=== PATIENT | female | born 1990 | race Caucasian/White ===

== ENCOUNTER 2016-08-10 11:16 | Outpatient (CLI) | payer MEDICAID ==
[~2016-08-10] VITALS: Ht 170.2 cm; Wt 92.1 kg
[~2016-08-10 11:16] MED LIST: BENZ-13 PO; BIRTH CONTROL PILL; CLOT45CR46 TOP; DICL50TA4 PO; DOXY100C2 PO; IBUP-1780 PO; Ibuprofen PO; LANS15CA PO; LEVO500T2 PO; METH4TAB PO; NAPR-243 PO; NITR-65 PO; ONDA-43 PO; ONDA4TAB11 PO; ONDA8TAB6 SL; PRAZ2CAP2 PO; PREN-37 PO; PREN1TAB19 PO; PRISTIQ PO; SULF-222 PO; SULF1TAB35 PO; VALA10004 PO; [UNRECOGNIZED DRUG - CODE] TP; magic mouthwash PO
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
[2016-08-10 11:36] VITALS: BP 93/53
[2016-08-10 11:57] LABS: BILIRUBIN,URINE NEGATIVE (NEGATIVE); KETONES,URINE NEGATIVE (NEGATIVE); LEUKOCYTE ESTERASE ,URINE 1+ (NEGATIVE); NITRITE,URINE NEGATIVE (NEGATIVE); PH,URINE 6 (5-9); PROTEIN,URINE 2+ (NEGATIVE); UROBILINOGEN,URINE NORMAL (NORMAL)
[2016-08-10 12:07] VITALS: BP 108/59
[2016-08-10 12:08] LABS: WBC,URINE 0-2 /HPF
[2016-08-10] MEDS ORDERED: FLU TRIvalent (5 YOA+) 2016-17 (AFLURIA) 0.5 ML IM ONE ×2 (12:41→12:45)
[2016-08-10] MEDS ORDERED: TETANUS,DIPTH,PERTUSS P/F (BOOSTRIX) 0.5 ML VIAL IM ONE (12:45)
[2016-08-10] MEDS ORDERED: TETANUS & DIPHTHERIA TOX,ADULT 0.5 ML (TENIVAC) IM ONE (12:45)
[2016-08-10 13:05] VITALS: BP 108/59
--- NOTE | 2016-08-11 14:19 | Physician Query-Final Dx ---
JER FENTON 08/11/16 1419: Clinic Account Progress/Dx Physician Query: Please give diagnosis Date of Service Aug 10, 2016 at 11:16 TOAN BROWN MD 08/12/16 0739: Clinic Account Progress/Dx DIAGNOSIS: Diagnosis false labor JER FENTON Aug 11, 2016 14:19 TOAN BROWN MD Aug 12, 2016 07:39
== END 2016-08-10 13:05 | disposition home or self-care (01) ==
LOC: WSo 11:16 → LDRP 11:16 → WSo 13:05
PROVIDERS: ATTEND Obstetrics & Gynecology
DX: O47.03 False labor before 37 completed weeks of gestation, third trimester (principal); Z3A.34 34 weeks gestation of pregnancy; Z23 Encounter for immunization
CPT/HCPCS: 80306; 81000; 90471; 90472; 90715; 99213

== ENCOUNTER 2016-09-19 21:03 | Outpatient (CLI) | payer MEDICAID ==
[~2016-09-19] VITALS: Ht 170.2 cm; Wt 97.1 kg
[2016-09-19 21:10] VITALS: BP 133/75
[2016-09-19 21:33] LABS: BILIRUBIN,URINE NEGATIVE (NEGATIVE); KETONES,URINE NEGATIVE (NEGATIVE); LEUKOCYTE ESTERASE ,URINE 1+ (NEGATIVE); NITRITE,URINE NEGATIVE (NEGATIVE); PH,URINE 6 (5-9); PROTEIN,URINE NEGATIVE (NEGATIVE); UROBILINOGEN,URINE 1 MG/DL (NORMAL)
[2016-09-19 22:59] VITALS: BP 133/75
--- NOTE | 2016-09-20 06:20 | Diagnostic Imaging Report ---
INDICATION: Abdominal pain. COMPARISON: None PROCEDURE: Limited ultrasound biophysical profile score is performed. FINDINGS: There is a single live intrauterine gestation in cephalic position. heart rate is 135 beats per minute. Amniotic fluid index is 14.1 cm. Biophysical profile score is as follows: breathin/2 movements: 2/2 posture and tone: 2/2 Amniotic fluid volume: 2/2 Total score: 8/8 Estimated gestational age by today's ultrasound measurements is 38 weeks 2 days compared to an estimated gestational age based on prior dating of 39 weeks 5 days. Estimated weight from today's ultrasound is 3397 g (+/-196 g (, or 7 lbs. 8 oz. (+/-13 ounces). This is approximately 35th percentile. IMPRESSION: Single live intrauterine gestation with a biophysical profile score of 8/8. heart rate is 135 beats per minute. No acute abnormality is suspected. Agree with [facility] interpretation Dictated by: Dictated on workstation # [id number]
--- NOTE | 2016-09-22 10:02 | Physician Query-Final Dx ---
JER FENTON 09/22/16 1002: Clinic Account Progress/Dx Physician Query: Please give diagnosis Date of Service Sep 19, 2016 at 21:03 ELLE TATE DO 09/23/16 1213: Clinic Account Progress/Dx Physician Query: DIAGNOSIS: Diagnosis 39 week IUP Abdominal pains Non compliance with JER FENTON Sep 22, 2016 10:02 ELLE TATE DO Sep 23, 2016 12:13
== END 2016-09-19 23:05 | disposition home or self-care (01) ==
LOC: WSo 21:03 → LDRP 21:05 → WSo 23:05
PROVIDERS: ATTEND Obstetrics & Gynecology
DX: O99.89 Other specified diseases and conditions complicating pregnancy, childbirth and the puerperium (principal); R10.10 Upper abdominal pain, unspecified; Z91.19 Patient's noncompliance with other medical treatment and regimen; Z3A.39 39 weeks gestation of pregnancy
CPT/HCPCS: 76819; 80306; 81000; 87081; 99213

== ENCOUNTER 2016-09-24 20:00 | Inpatient (IN) | payer MEDICAID ==
[~2016-09-24] VITALS: Ht 165.1 cm; Wt 97.1 kg
[2016-09-24] VITALS (8 sets, daily range): BP systolic 104–131; BP diastolic 55–83
[2016-09-24] MEDS ORDERED: D5 LR IV SOLUTION 1,000 ML IV ONE (21:07)
[2016-09-24] MEDS ORDERED: LACTATED RINGERS 1,000 ML IV SCH (21:14)
[2016-09-24] MEDS ORDERED: MINERAL OIL CONCENTRATE 99.9% 15 ML UDC TOP PRN (21:15)
[2016-09-24] MEDS ORDERED: MISOPROSTOL 100 MCG (CYTOTEC) TAB PO ONE (21:15)
[2016-09-24 22:19] LABS: BASOPHILS % (AUTO) 0 % (0-10); EOSINOPHILS # (AUTO) 0.3 10^3/uL (0.0-0.3); EOSINOPHILS % (AUTO) 2 % (0-10); LYMPHOCYTES # (AUTO) 3.2 X 10^3 (1.0-4.0); LYMPHOCYTES % (AUTO) 20 % (12-44); MEAN CORPUSCULAR HEMOGLOBIN 32 PG (25-34); MEAN CORPUSCULAR HGB CONC 35 G/DL (32-36); MEAN CORPUSCULAR VOLUME 92 FL (80-99); MEAN PLATELET VOLUME 10.8 FL (7.4-10.4); MONOCYTES # (AUTO) 1.1 X 10^3 (0.0-1.0); MONOCYTES % (AUTO) 7 % (0-12); NEUTROPHILS # (AUTO) 11.4 X 10^3 (1.8-7.8); NEUTROPHILS % (AUTO) 71 % (42-75); PLATELET COUNT 250 10^3/uL (130-400); RED BLOOD COUNT 4.14 10^6/uL (4.35-5.85); RED CELL DISTRIBUTION WIDTH 13.6 % (10.0-14.5); WHITE BLOOD COUNT 15.9 10^3/uL (4.3-11.0)
[2016-09-24] MEDS: D5 LR IV SOLUTION 1,000 ML IV SCH (22:20)
[2016-09-24] MEDS ORDERED: SUFENTA 0.6MCG/ML BUPIVA 0.125 100 ML ONE (22:53)
[2016-09-24] MEDS ORDERED: BUPIVACAINE 0.25% 30 ML (SENSORCAINE) VIAL ONE (23:28)
[2016-09-24] MEDS: EPIDURAL (SUFENTA 0.6MCG/ML BUPIVA 0.125%) 100 ML BAG EPI SCH (23:46)
[2016-09-25] VITALS (81 sets, daily range): BP systolic 88–153; BP diastolic 48–81
[2016-09-25] MEDS ORDERED: LACTATED RINGERS 1,000 ML IV ONE (00:29)
[2016-09-25] MEDS ORDERED: NALOXONE 0.4 MG/ML 1 ML (NARCAN) VIAL IV PRN (00:30)
[2016-09-25] MEDS ORDERED: ONDANSETRON 4 MG/2 ML (SDV) Z0FRAN IV PRN (00:30)
[2016-09-25] MEDS ORDERED: BUPIVACAINE 0.25% 30 ML (SENSORCAINE) VIAL INJ ONE (00:30)
[2016-09-25] MEDS: MISOPROSTOL 100 MCG (CYTOTEC) TAB PO SCH ×2 (02:28→06:11)
[2016-09-25] MEDS: D5 LR IV SOLUTION 1,000 ML IV SCH ×2 (04:46→12:40)
--- NOTE | 2016-09-25 07:26 | History & Physical-OB ---
OB - Chief Complaint & HPI Date Date of Admission: Date of Admission: Sep 24, 2016 at 8:45 pm Chief Complaint/History OB-Reason for Admission/Chief: Induction of Labor Hx : 5 Hx Para: 3 Expected Date of Delivery: Sep 21, 2016 Gestational Age in Weeks: 40 Indication for induction: post dates, other (Noncompliance with PNC) Admission Nurse Assessment Rev: Yes History of Labs A pos Antibody neg RI RPR NR HBsAg NR HIV NR GC neg GBS neg Allergies and Home Medications Allergies Coded Allergies: Penicillins (Unverified Allergy, Unknown, 01/09/14) Home Medications Vit/Iron Fumarate/FA 1 Each Tablet, 1 EACH PO DAILY, (Reported) OB - History Hx of Present Care: Yes Obstetrical Complications: Other (noncompliance with PNC, limited PNC) Medical Complications: None Obstetrical History Hx Termination: No Hx Multiple Gestation: No Hx Stillbirth: No Hx Complication: No Hx Induced Hypertens: No Hx Maternal Gestational Diabet: No Delivery History Hx Dystocia: No Hx Large For Gestational Age I: No Hx Small for Gestational Age I: No Hx Section: No Hx Vaginal Delivery Post C-Sec: No Hx Blood Disorders: No Adverse Rxn to Tranfusion: No Patient Past Medical History History of substance abuse and noncompliance Social History/Family History HIV/AIDS: No Recent Infectious Disease Expo: No Sexually Transmitted Disease: Yes (CHLAMYDIA) Alcohol Use: Denies Use Recreational Drug Use: Yes (neg on UDS) Immunizations Hepatitis A: Yes Hepatitis B: Yes Tetanus Booster (TDap): More than 5yrs Date of Influenza Vaccine: Mar 26, 2015 OB - Admission Exam Physical Exam Vitals: Vital Signs 09/25/16 09/25/16 05:15 06:30 Temp 98.2 Pulse 81 Resp 18 B/P (MAP) 98/56 Pulse Ox 97 HEENT: NCAT Heart: Rhythm Normal Lungs: Clear Abdomen: Gravid Extremities: Normal Reflexes: Normal Cervical Dilatation: 1cm Effacement: 75% Station: -1 Membranes: Intact Heart Rate: 130's Accelerations: Accelerations Present Decelerations: No Decelerations Short Term Variability: Present Jewelry Engraver Variability: Average (6-25) Contractions on Admission: 6-10 Minutes Apart Intensity: Mild Bassett Scoring Tool (Modified) Dilation (cm): 1-2cm (1) Effacement (%): 51-79% (2) Descent/Station: -1,0 (2) Cervix Consistency: Soft (2) Cervix Position: Anterior (2) Add 1 point for: Each previous vaginal delivery (1) Bassett Score: 11 Labs Laboratory Tests Test 09/24/16 21:00 09/24/16 21:30 Range/Units Urine Opiates Screen NEGATIVE NEGATIVE Urine Oxycodone Screen NEGATIVE NEGATIVE Urine Methadone Screen NEGATIVE NEGATIVE Urine Propoxyphene Screen NEGATIVE NEGATIVE Urine Barbiturates Screen NEGATIVE NEGATIVE Ur Tricyclic Antidepressants Screen NEGATIVE NEGATIVE Urine Phencyclidine Screen NEGATIVE NEGATIVE Urine Amphetamines Screen NEGATIVE NEGATIVE Urine Methamphetamines Screen NEGATIVE NEGATIVE Urine Benzodiazepines Screen NEGATIVE NEGATIVE Urine Cocaine Screen NEGATIVE NEGATIVE Urine Cannabinoids Screen NEGATIVE NEGATIVE White Blood Count 15.9 H 4.3-11.0 10^3/uL Red Blood Count 4.14 L 4.35-5.85 10^6/uL Hemoglobin 13.2 11.5-16.0 G/DL Hematocrit 38 35-52 % Mean Corpuscular Volume 92 80-99 FL Mean Corpuscular Hemoglobin 32 25-34 PG Mean Corpuscular Hemoglobin Concent 35 32-36 G/DL Red Cell Distribution Width 13.6 10.0-14.5 % Platelet Count 250 130-400 10^3/uL Mean Platelet Volume 10.8 H 7.4-10.4 FL Neutrophils (%) (Auto) 71 42-75 % Lymphocytes (%) (Auto) 20 12-44 % Monocytes (%) (Auto) 7 0-12 % Eosinophils (%) (Auto) 2 0-10 % Basophils (%) (Auto) 0 0-10 % Neutrophils # (Auto) 11.4 H 1.8-7.8 X 10^3 Lymphocytes # (Auto) 3.2 1.0-4.0 X 10^3 Monocytes # (Auto) 1.1 H 0.0-1.0 X 10^3 Eosinophils # (Auto) 0.3 0.0-0.3 10^3/uL Basophils # (Auto) 0.0 0.0-0.1 10^3/uL OB - Assessment/Plan/Diagnosis Assessment Assessment: induction of labor Plan Induction Method: per Misoprostol Protocol Discharge Diagnosis Diagnosis: 26 yo @ 40.2 weeks Non compliance with PNC History of substance abuse GBS neg ELLE TATE DO Sep 25, 2016 7:26 am
[2016-09-25] MEDS: CATHETER FLUSH 10 ML SYR IV SCH ×2 (07:49→15:31)
[2016-09-25] MEDS ORDERED: OXYTOCIN/NORMAL SALINE 500 ML IV ONE (08:01)
[2016-09-25] MEDS: EPIDURAL (SUFENTA 0.6MCG/ML BUPIVA 0.125%) 100 ML BAG EPI SCH (08:08)
[2016-09-25] MEDS ORDERED: OXYTOCIN/NORMAL SALINE 500 ML IV SCH ×2 (10:00→18:08)
--- NOTE | 2016-09-25 14:38 | Anesthesia-Regional Post-Op ---
Regional Patient Condition Mental Status: Alert, Oriented x3 Circulation: Same as Pre-Op Headache: Absent Sensation: Full Recovery Motor Block: Absent Post Op Complications Complications None Follow Up Care/Instructions Patient Instructions None needed. Anesthesia/Patient Condition Patient is doing well, no complaints, stable vital signs, no apparent adverse anesthesia problems. No complications reported per nursing. DORCAS MOREIRA CRNA Sep 25, 2016 14:38
--- NOTE | 2016-09-25 18:08 | OB Labor & Delivery Record ---
L&D History Date of Service Date of Service: Sep 25, 2016 History Expected Date of Delivery: Sep 21, 2016 Gestational Age in Weeks: 40 Hx : 5 Hx Para: 3 Complications Events: No Care Operative Indications (Cesarea: N/A-Vaginal Delivery Intrapartal Events: None L&D Stage1 Stage One Onset of Labor - Date: Sep 25, 2016 Monitors and Tracing Monitor Mode: External Heart Rate: 125 Station: -2 Presentation: Vertex Vital Signs VS - Last 72 Hours, by Label 09/24/16 09/24/16 09/24/16 09/24/16 20:45 23:20 23:35 23:40 Temp 97.0 97.7 Pulse 107 82 96 91 Resp 18 18 18 18 B/P (MAP) 131/83 104/55 123/68 121/74 Pulse Ox 98 98 09/24/16 09/24/16 09/24/16 09/24/16 23:45 23:47 23:52 23:57 Pulse 87 106 98 95 Resp 18 18 18 18 B/P (MAP) 120/75 121/71 111/58 111/61 Pulse Ox 100 100 99 99 09/25/16 09/25/16 09/25/16 09/25/16 00:02 00:07 00:12 00:17 Pulse 83 81 96 78 Resp 18 18 18 18 B/P (MAP) 100/57 98/56 109/62 107/58 Pulse Ox 99 99 99 98 09/25/16 09/25/16 09/25/16 09/25/16 00:22 00:30 00:45 01:00 Pulse 84 76 78 79 Resp 18 18 18 18 B/P (MAP) 110/67 112/58 102/55 105/55 Pulse Ox 98 98 97 97 09/25/16 09/25/16 09/25/16 09/25/16 01:15 01:30 01:45 02:00 Temp 98.2 Pulse 85 90 80 80 Resp 18 18 18 18 B/P (MAP) 100/56 101/52 100/56 101/50 Pulse Ox 98 98 98 97 09/25/16 09/25/16 09/25/16 09/25/16 02:15 02:30 02:45 03:00 Pulse 78 81 79 81 Resp 18 18 18 18 B/P (MAP) 101/54 102/58 99/58 98/56 Pulse Ox 96 96 96 96 09/25/16 09/25/16 09/25/16 09/25/16 03:15 03:30 03:45 04:00 Pulse 80 82 80 96 Resp 18 18 18 18 B/P (MAP) 88/52 95/52 89/50 91/52 Pulse Ox 96 96 96 97 09/25/16 09/25/16 09/25/16 09/25/16 04:15 04:30 04:45 05:00 Pulse 80 80 79 78 Resp 18 18 18 18 B/P (MAP) 97/48 99/50 92/54 93/54 Pulse Ox 96 96 97 97 09/25/16 09/25/16 09/25/16 09/25/16 05:15 05:30 05:45 06:00 Temp 98.2 Pulse 79 81 86 101 Resp 18 18 18 18 B/P (MAP) 94/54 101/54 106/59 117/58 Pulse Ox 97 97 97 97 09/25/16 09/25/16 09/25/16 09/25/16 06:15 06:30 06:45 07:00 Pulse 83 81 93 97 Resp 18 18 18 18 B/P (MAP) 110/61 98/56 109/59 110/59 Pulse Ox 97 97 97 97 09/25/16 09/25/16 09/25/16 09/25/16 07:15 07:30 07:45 08:00 Pulse 97 80 91 85 Resp 18 18 18 18 B/P (MAP) 106/57 116/61 Pulse Ox 96 94 96 96 O2 Delivery Room Air Room Air 09/25/16 09/25/16 09/25/16 09/25/16 08:15 08:30 08:45 09:00 Temp 98.1 Pulse 87 76 74 81 Resp 18 18 18 18 B/P (MAP) 99/60 109/53 102/59 99/58 Pulse Ox 97 98 97 97 O2 Delivery Room Air Room Air Room Air Room Air 09/25/16 09/25/16 09/25/16 09/25/16 09:15 09:30 09:45 10:00 Pulse 75 82 72 80 Resp 18 18 18 18 B/P (MAP) 101/60 106/62 105/58 103/57 Pulse Ox 97 96 96 96 O2 Delivery Room Air Room Air Room Air Room Air 09/25/16 09/25/16 09/25/16 09/25/16 10:15 10:30 10:45 11:00 Temp 98.0 Pulse 78 76 71 77 Resp 18 18 18 18 B/P (MAP) 105/55 104/57 107/58 110/59 Pulse Ox 96 98 97 96 O2 Delivery Room Air Room Air Room Air Room Air 09/25/16 09/25/16 09/25/16 09/25/16 11:15 11:30 11:45 12:00 Temp 97.4 Pulse 74 67 86 86 Resp 18 18 18 18 B/P (MAP) 90/51 92/50 94/58 94/58 Pulse Ox 98 99 98 98 O2 Delivery Room Air Room Air Room Air Room Air 09/25/16 09/25/16 09/25/16 09/25/16 12:15 12:30 12:45 13:00 Temp 97.7 Pulse 82 73 74 74 Resp 18 18 18 18 B/P (MAP) 92/51 93/54 118/64 118/64 Pulse Ox 99 97 98 98 O2 Delivery Room Air Room Air Room Air Room Air 09/25/16 09/25/16 09/25/16 09/25/16 13:15 13:30 13:45 14:00 Pulse 73 69 74 85 Resp 18 18 18 18 B/P (MAP) 111/57 98/54 111/65 109/63 Pulse Ox 97 96 98 98 O2 Delivery Room Air Room Air Room Air Room Air 09/25/16 09/25/16 09/25/16 09/25/16 14:15 14:30 14:45 15:00 Temp 97.5 Pulse 80 78 69 77 Resp 18 18 18 18 B/P (MAP) 106/62 105/63 103/59 107/54 Pulse Ox 98 98 97 98 O2 Delivery Room Air Room Air Room Air Room Air 09/25/16 09/25/16 15:15 15:30 Temp 97.4 Pulse 80 80 Resp 18 18 B/P (MAP) 106/61 Pulse Ox 98 97 O2 Delivery Room Air Room Air Rupture of Membranes Amniotic Membrane Rupture Time: 0659 Amniotic Membrane Fluid Desc.: Clear Vaginal Bleeding Description: Normal Show Induction/Anesthesia Epidural Cath Placement - Time: 2338 L&D Stage2 Stage Two Stage II Date: Sep 25, 2016 Monitors and Tracing Monitor Mode: External Heart Rate: 125 Monitor Decelerations: Variable Last Greaser Variability: Average (6-10) Short Term Variability: Present Position: Right Occiput Anterior Presentation: Vertex Cord Descript/Complications Cord Vessel Description: 3 Vessels Complications true knot noted in cord Delivery Type Anterior Shoulder: Right Episiotomy/Perineal Laceration Laceraction(s)/Extensions: No Condition of Infant Condition of Infant Condition of Infant: Living Exam: No Observed Abnormalities APGARS and Weight pending. Resuscitation efforts started by SANJAY Robles and Dr. Harp, with spontaneous respirations occuring shortly after L&D Stage3 Stage Three Stage III Date: Sep 25, 2016 Pictocin Pitocin Administration mu/min: 8 Pitocin ml/hr: 8 Pitocin Administration Comment: 30 mu Wide open Placenta Delivery Placenta Delivery: Spontaneous Delivery Summary Summary blood loss >1000ml: No Vaginal blood loss >500ml: No 250 Attending at delivery: Elle Tate DO Condition of Delivery Examined: Cervix Examined, Uterus Explored Post Hemorrhage: No Condition of Mother stable Condition of Infant (s) stable ELLE TATE DO Sep 25, 2016 6:08 pm
[2016-09-25] MEDS ORDERED: WITCH HAZEL(TUCKS) 40 EA JAR TOP PRN (18:15)
[2016-09-25] MEDS ORDERED: BENZOCAINE/MENTHOL (DERMOPLAST) 56 ML CAN TP PRN (18:15)
[2016-09-25] MEDS ORDERED: APAP 300 MG/CODEINE 30 MG (TYLENOL #3) TAB PO PRN (18:15)
[2016-09-25] MEDS ORDERED: TETANUS,DIPTH,PERTUSS P/F (BOOSTRIX) 0.5 ML VIAL IM ONE (18:15)
[2016-09-25] MEDS ORDERED: DIBUCAINE (NUPERCAINAL) 1% OINT 30 GM TOP PRN (18:15)
[2016-09-25] MEDS ORDERED: MEASLES,MUMPS,RUBELLA 1 EA INJ SQ ONE (18:15)
[2016-09-25] MEDS: IBUPROFEN 600 MG (MOTRIN) TAB PO SCH ×2 (18:24→23:58)
[2016-09-25] MEDS: DOCUSATE SODIUM 100 MG (COLACE) CAP PO SCH (20:26)
[2016-09-26] VITALS: BP 98/55
[2016-09-26 04:00] VITALS: BP 96/55
[2016-09-26] MEDS: D5 LR IV SOLUTION 1,000 ML IV SCH ×2 (05:14→05:38)
[2016-09-26] MEDS: CATHETER FLUSH 10 ML SYR IV SCH ×4 (05:34→05:39)
[2016-09-26 06:46] LABS: BASOPHILS % (AUTO) 0 % (0-10); EOSINOPHILS # (AUTO) 0.2 10^3/uL (0.0-0.3); EOSINOPHILS % (AUTO) 2 % (0-10); LYMPHOCYTES % (AUTO) 25 % (12-44); MEAN CORPUSCULAR HEMOGLOBIN 31 PG (25-34); MEAN CORPUSCULAR HGB CONC 34 G/DL (32-36); MEAN CORPUSCULAR VOLUME 92 FL (80-99); MEAN PLATELET VOLUME 10.5 FL (7.4-10.4); MONOCYTES # (AUTO) 0.8 X 10^3 (0.0-1.0); MONOCYTES % (AUTO) 7 % (0-12); NEUTROPHILS # (AUTO) 8.3 X 10^3 (1.8-7.8); NEUTROPHILS % (AUTO) 67 % (42-75); PLATELET COUNT 214 10^3/uL (130-400); RED BLOOD COUNT 4.12 10^6/uL (4.35-5.85); RED CELL DISTRIBUTION WIDTH 13.5 % (10.0-14.5); WHITE BLOOD COUNT 12.4 10^3/uL (4.3-11.0)
[2016-09-26] MEDS: IBUPROFEN 600 MG (MOTRIN) TAB PO SCH ×3 (07:11→18:54)
[2016-09-26 08:00] VITALS: BP 126/81
[2016-09-26] MEDS ORDERED: DOCUSATE CALCIUM 240 MG (SURFAK) CAP PO SCH (09:00)
--- NOTE | 2016-09-26 10:42 | Postpartum Progress Note ---
Note Note Day # 1 s/p Subjective: Patient is without complaints. Ambulating, voiding. Tolerating a regular diet without nausea or vomiting. Normal lochia. Pain is well controlled with oral pain medications. Objective: Laboratory Tests Test 09/26/16 06:19 Range/Units White Blood Count 12.4 H 4.3-11.0 10^3/uL Red Blood Count 4.12 L 4.35-5.85 10^6/uL Hemoglobin 12.9 11.5-16.0 G/DL Hematocrit 38 35-52 % Mean Corpuscular Volume 92 80-99 FL Mean Corpuscular Hemoglobin 31 25-34 PG Mean Corpuscular Hemoglobin Concent 34 32-36 G/DL Red Cell Distribution Width 13.5 10.0-14.5 % Platelet Count 214 130-400 10^3/uL Mean Platelet Volume 10.5 H 7.4-10.4 FL Neutrophils (%) (Auto) 67 42-75 % Lymphocytes (%) (Auto) 25 12-44 % Monocytes (%) (Auto) 7 0-12 % Eosinophils (%) (Auto) 2 0-10 % Basophils (%) (Auto) 0 0-10 % Neutrophils # (Auto) 8.3 H 1.8-7.8 X 10^3 Lymphocytes # (Auto) 3.0 1.0-4.0 X 10^3 Monocytes # (Auto) 0.8 0.0-1.0 X 10^3 Eosinophils # (Auto) 0.2 0.0-0.3 10^3/uL Basophils # (Auto) 0.0 0.0-0.1 10^3/uL Vital Sign - Last 12Hours 09/26/16 09/26/16 09/26/16 00:00 04:00 08:00 Temp 97.3 96.4 95.5 Pulse 66 69 85 Resp 19 16 18 B/P (MAP) 98/55 96/55 126/81 Pulse Ox 98 99 98 O2 Delivery Room Air Room Air Room Air Intake and Output 09/26/16 00:00 Intake Total 2625 ml Balance 2625 ml Physical Exam: General - Alert and oriented, no apparent distress Abdomen - Soft, appropriately tender to palpation, non-distended, fundus firm at umbilicus Extremities - no edema, negative Reji's bilaterally Assessment: 1. post- day # 1, status post spontaneous vaginal delivery. Recovering well, hemodynamically stable Plan: Routine care. Encourage breast feeding. Encourage ambulation. Ferrous sulfate supplementation. Plan for discharge [] Vitals - Labs Vital Signs - I&O Vital Signs Date Time Temp Pulse Resp B/P (MAP) Pulse Ox O2 Delivery O2 Flow Rate FiO2 09/26/16 08:00 95.5 85 18 126/81 98 Room Air 09/26/16 04:00 96.4 69 16 96/55 99 Room Air 09/26/16 00:00 97.3 66 19 98/55 98 Room Air 09/25/16 20:52 97.2 86 18 114/72 98 Room Air 09/25/16 19:19 98.0 74 18 110/62 Room Air 09/25/16 19:04 77 18 109/56 Room Air 09/25/16 18:49 77 18 110/61 Room Air 09/25/16 18:34 86 18 111/64 Room Air 09/25/16 18:19 86 18 116/62 Room Air 09/25/16 18:11 98.2 09/25/16 18:05 89 18 118/57 Room Air 09/25/16 17:49 98.5 89 18 143/66 Room Air 09/25/16 17:39 100 18 153/81 Room Air 09/25/16 17:36 98.3 110 18 149/80 Room Air 09/25/16 17:30 98.3 77 18 122/65 99 Room Air 09/25/16 17:15 86 18 130/67 99 Room Air 09/25/16 17:00 67 18 140/64 96 Room Air 09/25/16 16:45 98.5 76 18 96/58 98 Room Air 09/25/16 16:30 75 18 114/58 96 Room Air 09/25/16 16:15 98.1 69 18 107/59 97 Room Air 09/25/16 16:00 77 18 114/61 98 Room Air 09/25/16 15:45 71 18 111/56 98 Room Air 09/25/16 15:30 80 18 97 Room Air 09/25/16 15:15 97.4 80 18 106/61 98 Room Air 09/25/16 15:00 77 18 107/54 98 Room Air 09/25/16 14:45 69 18 103/59 97 Room Air 09/25/16 14:30 78 18 105/63 98 Room Air 09/25/16 14:15 97.5 80 18 106/62 98 Room Air 09/25/16 14:00 85 18 109/63 98 Room Air 09/25/16 13:45 74 18 111/65 98 Room Air 09/25/16 13:30 69 18 98/54 96 Room Air 09/25/16 13:15 73 18 111/57 97 Room Air 09/25/16 13:00 74 18 118/64 98 Room Air 09/25/16 12:45 97.7 74 18 118/64 98 Room Air 09/25/16 12:30 73 18 93/54 97 Room Air 09/25/16 12:15 82 18 92/51 99 Room Air 09/25/16 12:00 97.4 86 18 94/58 98 Room Air 09/25/16 11:45 86 18 94/58 98 Room Air 09/25/16 11:30 67 18 92/50 99 Room Air 09/25/16 11:15 74 18 90/51 98 Room Air 09/25/16 11:00 77 18 110/59 96 Room Air 09/25/16 10:45 98.0 71 18 107/58 97 Room Air I & O 09/26/16 07:00 Intake Total 2625 ml Balance 2625 ml Labs Laboratory Tests 09/26/16 06:19: White Blood Count 12.4H, Red Blood Count 4.12L, Hemoglobin 12.9, Hematocrit 38, Mean Corpuscular Volume 92, Mean Corpuscular Hemoglobin 31, Mean Corpuscular Hemoglobin Concent 34, Red Cell Distribution Width 13.5, Platelet Count 214, Mean Platelet Volume 10.5H, Neutrophils (%) (Auto) 67, Lymphocytes (%) (Auto) 25 , Monocytes (%) (Auto) 7, Eosinophils (%) (Auto) 2, Basophils (%) (Auto) 0, Neutrophils # (Auto) 8.3H, Lymphocytes # (Auto) 3.0, Monocytes # (Auto) 0.8, Eosinophils # (Auto) 0.2, Basophils # (Auto) 0.0 AFTAB AGUILERA DO Sep 26, 2016 10:42
[2016-09-26] MEDS ORDERED: IBUP-1773 PO (11:29)
--- NOTE | 2016-09-26 11:31 | Discharge Inst-Women's Service ---
Discharge Inst-Women's Serv Depart Medication/Instructions New, Converted or Re-Newed RX: Transmitted to Pharmacy Instructions nothing per vagina Final Diagnosis vaginal delivery Consults/Follow Up Additional Follow Up: Yes (6 weeks) Activity Activity: Activity as Tolerated Driving Instructions: You May Drive NO SMOKING: NO SMOKING Nothing Inside Vagina: No Douching, No [place], No Tampons Diet Discharge Diet: No Restrictions Symptoms to Report to : Bleeding Excessive, Fever Over 101 Degrees F, Vaginal Bleeding Increase, Cramps in Feet or Legs, Vaginal Discharge Foul For Any Problems or Questions: Contact Your Physician AFTAB AGUILERA DO Sep 26, 2016 11:31
[2016-09-26] MEDS: DOCUSATE SODIUM 100 MG (COLACE) CAP PO SCH ×2 (11:39→21:17)
[2016-09-26] MEDS: FERROUS SULF 325 MG (IRON) TAB PO SCH (11:39)
[2016-09-26] MEDS: PRENATAL VITAMIN 1 EA TAB PO SCH (11:39)
[2016-09-26 12:00] VITALS: BP 119/71
[2016-09-26 16:00] VITALS: BP 115/61
[2016-09-26 20:00] VITALS: BP 123/75
[2016-09-27 01:11] VITALS: BP 104/60
[2016-09-27] MEDS: IBUPROFEN 600 MG (MOTRIN) TAB PO SCH ×2 (01:11→08:02)
[2016-09-27] MEDS: PRENATAL VITAMIN 1 EA TAB PO SCH (08:01)
[2016-09-27] MEDS: FERROUS SULF 325 MG (IRON) TAB PO SCH (08:01)
[2016-09-27] MEDS: DOCUSATE SODIUM 100 MG (COLACE) CAP PO SCH (08:01)
[2016-09-27 08:05] VITALS: BP 113/69
== END 2016-09-27 10:20 | disposition home or self-care (01) | DRG 775 ==
LOC: LDRP 20:45
PROVIDERS: ADMIT Obstetrics & Gynecology; ATTEND Obstetrics & Gynecology
PROC: 10E0XZZ Delivery of Products of Conception, External Approach (ICD-10-PCS; principal; 2016-09-25)
DX: O48.0 Post-term pregnancy (principal); O69.2XX0 Labor and delivery complicated by other cord entanglement, with compression, not applicable or unspecified; O09.33 Supervision of pregnancy with insufficient antenatal care, third trimester; Z3A.40 40 weeks gestation of pregnancy; Z37.0 Single live birth
CPT/HCPCS: 36415; 80306; 85025; 86850; 86900; 86901; 88307

== ENCOUNTER 2017-05-15 20:49 | Emergency (ER) | payer MEDICAID, OTHER ==
[~2017-05-15] VITALS: Ht 170.2 cm; Wt 72.6 kg
[~2017-05-15 20:49] MED LIST changes: +IBUP-1773 PO
--- OUTSIDE RECORDS SUMMARY | 2017-05-15 20:55 | XMS REPORT ---
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 383159520 Problem Chronic hepatitis C without hepatic coma B18.2 Active 297481301 Problem Methamphetamine dependence in remission F15.21 Active 689530190 Problem care, subsequent in first trimester Z34.81 Active 413081237 ALLERGIES Substance Reaction Event Type Date Status Zoloft Unknown Drug Allergy Jul, Active Penicillin V Potassium Unknown Drug Allergy Jul, Active SOCIAL HISTORY Never Assessed PLAN OF CARE Activity Details Follow Up prn Reason: VITAL SIGNS Height 66 in 2016-08-12 Weight 208.2 lbs 2016-08-12 Temperature 97.6 degrees Fahrenheit 2016-08-12 Heart Rate 88 bpm 2016-08-12 Respiratory Rate 20 2016-08-12 BMI 33.60 kg/m2 2016-08-12 Blood pressure systolic 124 mmHg 2016-08-12 Blood pressure diastolic 76 mmHg 2016-08-12 MEDICATIONS Medication Instructions Dosage Frequency Start Date End Date Duration Status Cefdinir 300 MG Orally every 12 hrs 1 capsule 12h Jul, Aug, 10 day(s) Active Vitamins 28-0.8 MG Orally Once a day 1 tablet 24h Jan, 90 days Active RESULTS No Results PROCEDURES No Known procedures IMMUNIZATIONS No Known Immunizations MEDICAL (GENERAL) HISTORY Type Description Date Medical History PTSD Medical History Other Specified Depressive Disorder Medical History Amphetamine Use Disorder Medical History Tobacco User Surgical History Stillbirth delivery Hospitalization History Childbirth Hospitalization History Surgery Hospitalization History Overdose by Methamphetamines and Alcohol 03/2013
[2017-05-15] MEDS ORDERED: KETOROLAC 30 MG/ML VIAL IVP ONE (21:15)
[2017-05-15 21:25] LABS: BASOPHILS % (AUTO) 1 % (0-10); EOSINOPHILS # (AUTO) 0.2 10^3/uL (0.0-0.3); EOSINOPHILS % (AUTO) 3 % (0-10); LYMPHOCYTES # (AUTO) 2.4 X 10^3 (1.0-4.0); LYMPHOCYTES % (AUTO) 32 % (12-44); MEAN CORPUSCULAR HEMOGLOBIN 31 PG (25-34); MEAN CORPUSCULAR HGB CONC 34 G/DL (32-36); MEAN CORPUSCULAR VOLUME 92 FL (80-99); MEAN PLATELET VOLUME 9.7 FL (7.4-10.4); MONOCYTES # (AUTO) 0.7 X 10^3 (0.0-1.0); MONOCYTES % (AUTO) 9 % (0-12); NEUTROPHILS # (AUTO) 4.1 X 10^3 (1.8-7.8); NEUTROPHILS % (AUTO) 55 % (42-75); PLATELET COUNT 232 10^3/uL (130-400); RED BLOOD COUNT 4.22 10^6/uL (4.35-5.85); RED CELL DISTRIBUTION WIDTH 12.8 % (10.0-14.5); WHITE BLOOD COUNT 7.4 10^3/uL (4.3-11.0)
[2017-05-15 21:28] LABS: INR 0.9 (0.8-1.4); PROTHROMBIN TIME PATIENT 12.4 SEC (12.2-14.7)
--- NOTE | 2017-05-15 21:30 | ED Abdominal Pain ---
General Chief Complaint: Abdominal/GI Problems Stated Complaint: ABD PAIN/VOMITING Nursing Triage Note: c/o 'liver pain' with n/v Sepsis Screen: No Definite Risk Source of Information: Patient Exam Limitations: No Limitations (SHANI NOVAK APRN) History of Present Illness Time Seen By Provider: 21:28 Initial Comments To ER in an orange jumpsuit and shackles accompanied by [facility] deputy with reports of "liver pain" for a few weeks. Patient states that she has hepatitis C and the pain has been unusual associated with vomiting today. She has not had treatment for hepatitis. Timing/Duration: 1-2 Days Severity/Quality: Moderate Location: RUQ Radiation: No Radiation Activities at Onset: None (SHANI NOVAK APRN) Allergies and Home Medications Allergies Coded Allergies: Penicillins (Unverified Allergy, Unknown, 01/09/14) Home Medications No Active Prescriptions or Reported Meds Review of Systems Constitutional: see HPI EENTM: No Symptoms Reported Respiratory: No Symptoms Reported Cardiovascular: No Symptoms Reported Gastrointestinal: See HPI, Abdominal Pain, Nausea, Vomiting Musculoskeletal: no symptoms reported Skin: no symptoms reported Endocrine: No Symptoms Reported (SHANI NOVAK APRN) Past Pzffcdp-Ambdqo-Rvorsr Hx Patient Social History Alcohol Use: Denies Use Recreational Drug Use: Yes Drug of Choice: METHAMPHETAMINE/THC Smoking Status: Current Everyday Smoker Type Used: Cigarettes Recent Foreign Travel: No Contact w/Someone Who Travel: No Recent Infectious Disease Expo: No Recent Hopitalizations: No (SHANI NOVAK APRN) Immunizations Up To Date Tetanus Booster (TDap): More than 5yrs PED Vaccines UTD: Yes Date of Influenza Vaccine: Mar 26, 2015 (SHANI NOVAK APRN) Seasonal Allergies Seasonal Allergies: No (SHANI NOVAK APRN) Surgeries History of Surgeries: No (SHANI NOVAK APRN) Respiratory History of Respiratory Disorde: No (SHANI NOVAK APRN) Cardiovascular History of Cardiac Disorders: No (SHANI NOVAK APRN) Neurological History of Neurological Disord: No (SHANI NOVAK APRN) Reproductive System Hx Reproductive Disorders: No Sexually Transmitted Disease: Yes (CHLAMYDIA) HIV/AIDS: No Female Reproductive Disorders: Denies 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 (SHANI NOVAK APRN) Genitourinary History of Genitourinary Disor: No (SHANI NOVAK APRN) Gastrointestinal History of Gastrointestinal Di: Yes (HEP C ) Gastrointestinal Disorders: Liver Disease/Jaundice (SHANI NOVAK APRN) Musculoskeletal History of Musculoskeletal Dis: No (SHANI NOVAK APRN) Endocrine History of Endocrine Disorders: No (SHANI NOVAK APRN) HEENT History of HEENT Disorders: No Loss of Vision: Denies Hearing Impairment: Denies (SHANI NOVAK APRN) Cancer History of Cancer: No (SHANI NOVAK APRN) Psychosocial History of Psychiatric Problem: No (SHANI NOVAK APRN) Integumentary History of Skin or Integumenta: No (SHANI NOVAK APRN) Blood Transfusions History of Blood Disorders: No Adverse Reaction to a Blood Tr: No (SHANI NOVAK APRN) Family Medical History Family Medial History: Alcoholism 19 FATHER, Onset:15's - 19 MOTHER, Onset:15's - 20 G8 BROTHER, Onset:15's - 20 G8 SISTER, Onset:15's - Asthma G8 SISTER, Onset:Childhood Diabetes mellitus 19 MOTHER, Onset:40's - 50 Drug abuse 19 FATHER, Onset:15's - 20 19 MOTHER, Onset:15's - 20 G8 BROTHER, Onset:15's - 20 G8 SISTER, Onset:15's - 20 Hypercholesterolemia 19 MOTHER, Onset:40's - 50 Hypertension 19 MOTHER, Onset:40's - 50 Psychosocial problem 19 FATHER, Onset:15s - 20 (Drug and alcohol abuse ) 19 MOTHER, Onset:15's - 20 G8 BROTHER, Onset:15's - 20 G8 SISTER, Onset:15's - 20 Respiratory disorder G8 SISTER, Onset:15's - 20 Severe allergy G8 SISTER, Onset:Childhood (Wasp stings/ anaphylatic shock ) No Family History of: AIDS Abdominal aortic aneurysm [place]'s disease Alzheimer's disease Aphasia Arthritis Cancer of mouth Cardiovascular disease Cataracts Colon cancer Completed stroke Congenital disease Congenital heart disease Coronary thrombosis Cystic fibrosis Deafness or hearing loss Dementia Dysphasia Fibrocystic disease of breast Gastroenteritis Glaucoma Headache disorder Infertility Kidney disease Myocardial infarction Neoplasm Not obtainable due to adoption Osteoporosis Parkinson's disease Prostate cancer Seizure disorder Thyroid disease Tuberculosis Visual disorder (SHANI NOVAK APRN) Family Medial History: Alcoholism 19 FATHER, Onset:15's - 20 19 MOTHER, Onset:15 G8 BROTHER, Onset:15 G8 SISTER, Onset: Asthma G8 SISTER, Onset:Childhood Diabetes mellitus 19 MOTHER, Onset:40 Drug abuse 19 FATHER, Onset: 19 MOTHER, Onset:15 G8 BROTHER, Onset:15 G8 SISTER, Onset: Hypercholesterolemia 19 MOTHER, Onset:40 Hypertension 19 MOTHER, Onset:40 Psychosocial problem 19 FATHER, Onset: (Drug and alcohol abuse ) 19 MOTHER, Onset:15 G8 BROTHER, Onset: G8 SISTER, Onset: Respiratory disorder G8 SISTER, Onset: Severe allergy G8 SISTER, Onset:Childhood (Wasp stings/ anaphylatic shock ) No Family History of: AIDS Abdominal aortic aneurysm [place]'s disease Alzheimer's disease Aphasia Arthritis Cancer of mouth Cardiovascular disease Cataracts Colon cancer Completed stroke Congenital disease Congenital heart disease Coronary thrombosis Cystic fibrosis Deafness or hearing loss Dementia Dysphasia Fibrocystic disease of breast Gastroenteritis Glaucoma Headache disorder Infertility Kidney disease Myocardial infarction Neoplasm Not obtainable due to adoption Osteoporosis Parkinson's disease Prostate cancer Seizure disorder Thyroid disease Tuberculosis Visual disorder (HARJINDER CRAWFORD) Physical Exam Vital Signs VS - Last 72 Hours, by Label 05/15/17 21:08 Temp 98.7 Pulse 79 Resp 18 B/P (MAP) 117/75 (89) Pulse Ox 98 (HARJINDER CRAWFORD) Vital Signs Capillary Refill : Less Than 3 Seconds (SHANI NOVAK APRN) General Appearance: WD/WN, no apparent distress HEENT: PERRL/EOMI, normal ENT inspection Neck: non-tender, full range of motion Respiratory: normal breath sounds, no respiratory distress, no accessory muscle use Cardiovascular: regular rate, rhythm, no murmur Gastrointestinal: normal bowel sounds, non tender, soft Extremities: normal range of motion, non-tender Neurologic/Psychiatric: alert, normal mood/affect, oriented x 3 Skin: normal color, warm/dry (SHANI NOVAK APRN) Progress/Results/Core Measures Results/Orders Lab Results Laboratory Tests Test 05/15/17 21:10 05/15/17 22:10 Range/Units White Blood Count 7.4 4.3-11.0 10^3/uL Red Blood Count 4.22 L 4.35-5.85 10^6/uL Hemoglobin 13.2 11.5-16.0 G/DL Hematocrit 39 35-52 % Mean Corpuscular Volume 92 80-99 FL Mean Corpuscular Hemoglobin 31 25-34 PG Mean Corpuscular Hemoglobin Concent 34 32-36 G/DL Red Cell Distribution Width 12.8 10.0-14.5 % Platelet Count 232 130-400 10^3/uL Mean Platelet Volume 9.7 7.4-10.4 FL Neutrophils (%) (Auto) 55 42-75 % Lymphocytes (%) (Auto) 32 12-44 % Monocytes (%) (Auto) 9 0-12 % Eosinophils (%) (Auto) 3 0-10 % Basophils (%) (Auto) 1 0-10 % Neutrophils # (Auto) 4.1 1.8-7.8 X 10^3 Lymphocytes # (Auto) 2.4 1.0-4.0 X 10^3 Monocytes # (Auto) 0.7 0.0-1.0 X 10^3 Eosinophils # (Auto) 0.2 0.0-0.3 10^3/uL Basophils # (Auto) 0.0 0.0-0.1 10^3/uL Prothrombin Time 12.4 12.2-14.7 SEC INR Comment 0.9 0.8-1.4 D-Dimer < 0.27 0.00-0.49 UG/ML Sodium Level 141 135-145 MMOL/L Potassium Level 4.3 3.6-5.0 MMOL/L Chloride Level 108 H 98-107 MMOL/L Carbon Dioxide Level 24 21-32 MMOL/L Anion Gap 9 5-14 MMOL/L Blood Urea Nitrogen 16 7-18 MG/DL Creatinine 0.78 0.60-1.30 MG/DL Estimat Glomerular Filtration Rate > 60 BUN/Creatinine Ratio 21 Glucose Level 93 70-105 MG/DL Calcium Level 9.3 8.5-10.1 MG/DL Total Bilirubin 0.4 0.1-1.0 MG/DL Aspartate Amino Transf (AST/SGOT) 31 5-34 U/L Alanine Aminotransferase (ALT/SGPT) 52 0-55 U/L Alkaline Phosphatase 49 40-136 U/L Total Protein 7.3 6.4-8.2 GM/DL Albumin 4.4 3.2-4.5 GM/DL Lipase 23 8-78 U/L Serum Test, Qualitative NEGATIVE NEGATIVE Urine Color YELLOW Urine Clarity CLEAR Urine pH 8 5-9 Urine Specific [place] 1.010 L 1.016-1.022 Urine Protein NEGATIVE NEGATIVE Urine Glucose (UA) NEGATIVE NEGATIVE Urine Ketones NEGATIVE NEGATIVE Urine Nitrite NEGATIVE NEGATIVE Urine Bilirubin NEGATIVE NEGATIVE Urine Urobilinogen NORMAL NORMAL MG/DL Urine Leukocyte Esterase NEGATIVE NEGATIVE Urine RBC (Auto) 1+ H NEGATIVE Urine RBC 0-2 /HPF Urine WBC NONE /HPF Urine Squamous Epithelial Cells RARE /HPF Urine Crystals NONE /LPF Urine Bacteria NEGATIVE /HPF Urine Casts NONE /LPF Urine Mucus NEGATIVE /LPF Urine Culture Indicated NO (HARJINDER CRAWFORD) Medications Given in ED Current Medications Medications Dose Ordered Sig/Amalia Route Start Time Stop Time Status Last Admin Dose Admin Iohexol 100 ml ONCE ONCE IV 05/15/17 22:00 05/15/17 22:01 DC 05/15/17 21:58 100 ML Ketorolac Tromethamine 30 mg ONCE ONCE IVP 05/15/17 21:15 05/15/17 21:17 DC 05/15/17 22:15 30 MG Sodium Chloride 100 ml ONCE ONCE IV 05/15/17 22:00 05/15/17 22:01 DC 05/15/17 21:58 80 ML (HARJINDER CRAWFORD) Vital Signs/I&O Vital Sign - Last 12Hours 05/15/17 21:08 Temp 98.7 Pulse 79 Resp 18 B/P (MAP) 117/75 (89) Pulse Ox 98 (HARJINDER CRAWFORD) Blood Pressure Mean: 89 Progress Note : Time: 23:52 Progress Note Assume care of the patient at 11:15. Examined patient. She is comfortable. Discussed case imaging labs and findings with Shani Novak. Plan is to get ultrasound as the CT was unable to characterize the hepatic vein. Patient has no evidence on clinical exam of a hepatic vein thrombosis. D-dimer is negative. Patient's right upper quadrant pain is not associated with ascites or other findings. Patient does however have hepatitis C. (HARJINDER CRAWFORD) Diagnostic Imaging Diagonstic Imaging: CT Plain Films/CT/US/NM/MRI: abdomen, pelvis Comments Stat read impression: 1 on opacification of the right hepatic vein, more so than remaining hepatic veins. Gao-like eruptions days of contrast, given the history, thrombosis cannot be definitively excluded. Right upper quadrant Doppler ultrasound is recommended for further evaluation, if clinically indicated. 2 large stool ball seen within the rectum. Findings suggestive of constipation. 3. Probable wall thickening of proximal small bowel loops raises concern for infectious versus inflammatory enteritis. Alternatively this may be reactive to the portal hypertension. Reviewed: Reviewed [facility] Study Diagonstic Imaging: Ultrasound Plain Films/CT/US/NM/MRI: abdomen (hepatic vein) Comments Impression gallbladder wall had no mild proptosis. Hepatic veins are patent. Reviewed: Reviewed Night [facility] Study (HARJINDER CRAWFORD) Transfer of Care Transfer of Care Time: 23:15 Care transferred to: MARIPOSA (HARJINDER CRAWFORD) Departure Communication (Admissions) Progress Notes 2250- there is concern for the possibility of a right hepatic vein thrombosis on the contrast-enhanced CT scan.. Ultrasound has been ordered to further evaluate this. Care has been turned over to Dr. Crawford. (SHANI NOVAK APRN) Impression Impression: Primary Impression: Nausea and vomiting Qualified Codes: R11.2 - Nausea with vomiting, unspecified Additional Impressions: Right upper quadrant abdominal pain Constipation Qualified Codes: K59.00 - Constipation, unspecified Disposition: 01 HOME, SELF-CARE Condition: Stable Departure-Patient Inst. Decision time for Depature: 21:29 (SHANI NOVAK APRN) Referrals: CARMELO SCHMIDT MD (PCP/Family) Primary Care Physician Patient Instructions: Acute Abdomen (Belly Pain), Adult (DC), Constipation, Adult (DC) Add. Discharge Instructions: 1. REturn tO ER for any concerns Scripts No Active Prescriptions or Reported Meds Copy Copies To 1: CYDNEY PEREZ PETER J APRN May 15, 2017 21:30 HARJINDER CRAWFORD May 15, 2017 23:55
[2017-05-15 21:39] LABS: ALANINE AMINOTRANSFERASE 52 U/L (0-55); ALBUMIN 4.4 GM/DL (3.2-4.5); ANION GAP 9 MMOL/L (5-14); ASPARTATE AMINO TRANSFERASE 31 U/L (5-34); BILIRUBIN,TOTAL 0.4 MG/DL (0.1-1.0); BLOOD UREA NITROGEN 16 MG/DL (7-18); BUN/CREATININE RATIO 21; CALCIUM 9.3 MG/DL (8.5-10.1); CARBON DIOXIDE 24 MMOL/L (21-32); CHLORIDE 108 MMOL/L (98-107); CREATININE SERUM 0.78 MG/DL (0.60-1.30); GFR ESTIMATED > 60; GLUCOSE 93 MG/DL (70-105); LIPASE 23 U/L (8-78); POTASSIUM 4.3 MMOL/L (3.6-5.0); SODIUM 141 MMOL/L (135-145); TOTAL PROTEIN 7.3 GM/DL (6.4-8.2)
[2017-05-15] MEDS ORDERED: IOHEXOL 350 MG/ML 100 ML (OMNIPAQUE 350) VIAL IV ONE (22:00)
[2017-05-15] MEDS ORDERED: NS 100 ML (IVPB) BAG IV ONE (22:00)
[2017-05-15 22:22] LABS: BILIRUBIN,URINE NEGATIVE (NEGATIVE); KETONES,URINE NEGATIVE (NEGATIVE); LEUKOCYTE ESTERASE ,URINE NEGATIVE (NEGATIVE); NITRITE,URINE NEGATIVE (NEGATIVE); PH,URINE 8 (5-9); PROTEIN,URINE NEGATIVE (NEGATIVE); UROBILINOGEN,URINE NORMAL (NORMAL)
[2017-05-15] MEDS ORDERED: MAGNESIUM CITRATE 300 ML BTL PO ONE (22:30)
[2017-05-15 22:35] LABS: SQUAMOUS EPITHELIAL CELL,UR RARE /HPF
[2017-05-16 01:05] VITALS: BP 117/75
[2017-05-16] MEDS ORDERED: MAGNESIUM CITRATE 300 ML BTL ONE (01:09)
--- NOTE | 2017-05-16 06:21 | Diagnostic Imaging Report ---
PROCEDURE: CT abdomen and pelvis with contrast. TECHNIQUE: Multiple contiguous axial images were obtained through the abdomen and pelvis after administration of intravenous contrast. INDICATION: Right upper quadrant pain and tenderness COMPARISON: 12/10/2015 FINDINGS: The visualized lung bases are clear. The liver and spleen are mildly enlarged. Otherwise, the liver, spleen, adrenal glands, pancreas, and gallbladder are unremarkable. The kidneys are unremarkable. No aneurysmal dilatation of the abdominal aorta. The urinary bladder is distended, though otherwise unremarkable. Gas lucency is identified within the vagina, felt to relate to a tampon. The uterus and adnexal structures are unremarkable. Extensive amount of stool is identified throughout the colon. The appendix is unremarkable. No bowel obstruction or pneumatosis. The main portal vein is patent. Asymmetric diminished enhancement is noted within branches of the right hepatic vein. Mural thickening is noted within loops of proximal small bowel. No significant adenopathy, free air, or free fluid within the abdomen or pelvis. No acute osseous abnormality. IMPRESSION: Mild mural thickening within loops of proximal small bowel, likely related to underlying enteritis, of an infectious or inflammatory process. Extensive amount of stool throughout the colon, felt to relate to constipation. Asymmetric decreased enhancement within the right hepatic vein. This is favored to simply relate to phase of enhancement. However, thrombus cannot be excluded. Doppler ultrasound would help to further evaluate. Mild hepatosplenomegaly, slightly increased from the prior examination. Additional findings as above. Agree with preliminary interpretation. Dictated by: Dictated on workstation # [id number]
--- NOTE | 2017-05-16 06:54 | Diagnostic Imaging Report ---
INDICATION: Right upper quadrant pain, hepatic vein evaluation COMPARISON: CT dated May 15, 2017 FINDINGS: The liver demonstrates diffusely increased echogenicity without evidence of a focal hepatic mass. The hepatic veins all appear patent. The gallbladder is predominantly decompressed. The gallbladder wall is borderline thickened measuring 0.3 cm. Ringdown artifact is identified associated with the wall of the gallbladder. No pericholecystic fluid. The right kidney is unremarkable. The pancreas is not well-seen secondary to overlying bowel gas. No significant free fluid. IMPRESSION: Adenomyomatosis of the gallbladder wall. The hepatic veins appear patent. Fatty infiltration of the liver. Additional findings as above. Agree with preliminary interpretation. Dictated by: Dictated on workstation # [id number]
== END 2017-05-16 01:04 ==
LOC: EDUNIT# 20:49 → ER 20:50
DX: R10.11 Right upper quadrant pain (principal); R11.2 Nausea with vomiting, unspecified; K59.00 Constipation, unspecified; F15.90 Other stimulant use, unspecified, uncomplicated; B19.20 Unspecified viral hepatitis C without hepatic coma; F17.210 Nicotine dependence, cigarettes, uncomplicated; Z97.5 Presence of (intrauterine) contraceptive device
CPT/HCPCS: 36415; 74177; 76705; 80053; 81000; 83690; 84703; 85025; 85379; 85610

== ENCOUNTER 2018-03-02 00:25 | Observation (INO) | payer MEDICAID, OTHER ==
[~2018-03-02] VITALS: Ht 170.2 cm; Wt 84.4 kg
[~2018-03-02 00:25] MED LIST changes: -BENZ-13 PO; +BENZ100C18 PO
[2018-03-02 00:31] VITALS: BP 119/67
[2018-03-02] MEDS ORDERED: PREN-142 PO (00:40)
[2018-03-02] MEDS ORDERED: D5 LR IV SOLUTION 1,000 ML IV ONE ×3 (00:55→03:08)
[2018-03-02] MEDS ORDERED: BETAMETHASONE ACE/NA PHOS 6 MG/ML (CELESTONE SOLUSPAN) IM SCH (01:00)
[2018-03-02] MEDS ORDERED: BETAMETHASONE ACE/NA PHOS 6 MG/ML (CELESTONE SOLUSPAN) ONE (01:01)
[2018-03-02 01:23] LABS: BASOPHILS % (AUTO) 0 % (0-10); EOSINOPHILS # (AUTO) 0.4 10^3/uL (0.0-0.3); EOSINOPHILS % (AUTO) 2 % (0-10); HEMATOCRIT 32 % (35-52); HEMOGLOBIN 11.5 G/DL (11.5-16.0); LYMPHOCYTES # (AUTO) 4.9 X 10^3 (1.0-4.0); LYMPHOCYTES % (AUTO) 26 % (12-44); MEAN CORPUSCULAR HEMOGLOBIN 33 PG (25-34); MEAN CORPUSCULAR HGB CONC 36 G/DL (32-36); MEAN CORPUSCULAR VOLUME 91 FL (80-99); MEAN PLATELET VOLUME 10.2 FL (7.4-10.4); MONOCYTES # (AUTO) 1.4 X 10^3 (0.0-1.0); MONOCYTES % (AUTO) 7 % (0-12); NEUTROPHILS # (AUTO) 12.6 X 10^3 (1.8-7.8); NEUTROPHILS % (AUTO) 65 % (42-75); PLATELET COUNT 323 10^3/uL (130-400); RED BLOOD COUNT 3.52 10^6/uL (4.35-5.85); RED CELL DISTRIBUTION WIDTH 12.3 % (10.0-14.5); WHITE BLOOD COUNT 19.4 10^3/uL (4.3-11.0)
[2018-03-02 01:30] LABS: BILIRUBIN,URINE NEGATIVE (NEGATIVE); CLARITY,URINE VERY CLOUDY; COLOR,URINE RED; GLUCOSE, URINE (UA) NEGATIVE (NEGATIVE); KETONES,URINE NEGATIVE (NEGATIVE); LEUKOCYTE ESTERASE ,URINE 1+ (NEGATIVE); NITRITE,URINE NEGATIVE (NEGATIVE); PH,URINE 6 (5-9); PROTEIN,URINE 4+ (NEGATIVE); UROBILINOGEN,URINE 1 MG/DL (NORMAL)
[2018-03-02 01:39] LABS: BACTERIA,URINE TRACE /HPF; RBC,URINE TNTC /HPF; WBC,URINE RARE /HPF
[2018-03-02 01:41] LABS: AMPHETAMINE SCREEN, URINE POSITIVE (NEGATIVE); BARBITURATE SCREEN URINE NEGATIVE (NEGATIVE); BENZODIAZEPINES SCREEN URINE NEGATIVE (NEGATIVE); CANNABINOID SCREEN, URINE POSITIVE (NEGATIVE); COCAINE SCREEN URINE NEGATIVE (NEGATIVE); METHADONE STAT NEGATIVE (NEGATIVE); METHAMPHETAMINE SCREEN URINE S NEGATIVE (NEGATIVE); OPIATE SCREEN URINE NEGATIVE (NEGATIVE); OXYCODONE STAT NEGATIVE (NEGATIVE); PROPOXYPHENE STAT NEGATIVE (NEGATIVE); TRICYCLIC ANTIDEPRESSANTS SCRE NEGATIVE (NEGATIVE)
[2018-03-02 01:46] LABS: BAND NEUTROPHILS 2 %; BASOPHILS % (MANUAL) 0 %; EOSINOPHILS % (MANUAL) 0 %; LYMPHOCYTES % (MANUAL) 25 %; MONOCYTES % (MANUAL) 5 %; NEUTROPHILS % (MANUAL) 68 %; RBC MORPH NORMAL
[2018-03-02] MEDS ORDERED: D5 LR IV SOLUTION 1,000 ML IV SCH (03:15)
[2018-03-02] MEDS ORDERED: ONDANSETRON 4 MG/2 ML (SDV) Z0FRAN ONE (05:35)
[2018-03-02] MEDS ORDERED: raNItidine 50 MG/2 ML INJ (ZANTAC) ONE (05:35)
[2018-03-02] MEDS ORDERED: ONDANSETRON 4 MG/2 ML (SDV) Z0FRAN IVP PRN ×2 (05:45→06:00)
[2018-03-02] MEDS ORDERED: raNItidine 50 MG/2 ML INJ (ZANTAC) IM/IV ONE (05:45)
[2018-03-02] MEDS ORDERED: CATHETER FLUSH 10 ML SYR IV PRN (06:00)
[2018-03-02 06:30] LABS: BASOPHILS % (AUTO) 0 % (0-10); EOSINOPHILS # (AUTO) 0.1 10^3/uL (0.0-0.3); EOSINOPHILS % (AUTO) 0 % (0-10); HEMATOCRIT 33 % (35-52); HEMOGLOBIN 11.9 G/DL (11.5-16.0); LYMPHOCYTES # (AUTO) 2.5 X 10^3 (1.0-4.0); LYMPHOCYTES % (AUTO) 13 % (12-44); MEAN CORPUSCULAR HEMOGLOBIN 33 PG (25-34); MEAN CORPUSCULAR HGB CONC 36 G/DL (32-36); MEAN CORPUSCULAR VOLUME 91 FL (80-99); MEAN PLATELET VOLUME 10.2 FL (7.4-10.4); MONOCYTES # (AUTO) 0.3 X 10^3 (0.0-1.0); MONOCYTES % (AUTO) 2 % (0-12); NEUTROPHILS % (AUTO) 85 % (42-75); PLATELET COUNT 322 10^3/uL (130-400); RED BLOOD COUNT 3.59 10^6/uL (4.35-5.85); RED CELL DISTRIBUTION WIDTH 12.4 % (10.0-14.5); WHITE BLOOD COUNT 18.9 10^3/uL (4.3-11.0)
[2018-03-02] MEDS ORDERED: FLU QUADRIvalent (5+ YOA) 2018-2019 (AFLURIA) 0.5 ML IM ONE (07:30)
--- NOTE | 2018-03-02 07:50 | Diagnostic Imaging Report ---
PATIENT HISTORY: BLEEDING, PT. STATES HAS PLACENTA PREVIA. TECHNIQUE: Transabdominal ultrasound of the gravid uterus COMPARISON: None FINDINGS: There is a live intrauterine gestation in cephalic presentation. The placenta is posterior, and appears to completely cover the internal os of the cervix, consistent with complete placenta previa. The cervix measures approximately 3.6 cm. The heart rate is 176 bpm. The amniotic fluid index is 11.2 cm, which is normal. The maternal adnexa are not seen. IMPRESSION: 1. Single live intrauterine gestation in cephalic presentation. heart rate and amniotic fluid are normal. 2. Posterior placenta with complete placenta previa. Dictated by: Dictated on workstation # [id number]
--- NOTE | 2018-03-02 09:22 | History & Physical-OB ---
OB - Chief Complaint & HPI Date/Time Date of Admission: Date of Admission: Mar 02, 2018 at 02:05 Date seen by a Provider: Mar 02, 2018 Time Seen by a Provider: 09:13 Chief Complaint/History OB-Reason for Admission/Chief: Obstetrical Complication Hx : 6 Hx Para: 5 Expected Date of Delivery: May 02, 2018 Gestational Age in Weeks: 31 Gestational Age in Days: 2 Other reason for admission: This is a 27yo at 31w2d with 4 previous term vaginal delivery and 1 previous demise at 30 weeks with no local physician. Pt has known complete placental previa and was instructed to be on pelvic and bed rest. She initiated care with Dr. Centeno [place] and was followed by her until she was incarcerated. She has a history of prior vaginal bleeding at 20 weeks and history of contractions without vaginal bleeding at 25 weeks. Per patient report is appears contractions ceased following administration of terbutaline. She also reported receiving steroids at 25 weeks. records obtained and reviewed from OB office (prior hospital records not available). Pt reports after getting out [facility] week ago she moved to [place] and has been living with her grandmother. She reports having intercourse yesterday am. She then developed painless vaginal bleeding last night and presented to L& D. Limited OB US was done last night which confirmed complete placenta previa, LENA 11.2. Hb has been stable in the 11s. Pt has had intermittent mild vaginal bleeding since admission. Initially had some mild contractions which resolved with IVF. FHT has been reactive. Blood type A+ Rubella immune HIV, Hep B, RPR non-reactive Pt has hx of Hep C pos antibody, she had a negative viral load in 2013. Allergies and Home Medications Allergies Coded Allergies: Penicillins (Unverified Allergy, Unknown, 01/09/14) sertraline (Verified Allergy, Unknown, 03/02/18) Home Medications Vit No.124/Iron/FA 1 Each Tablet, 1 EACH PO DAILY, (Reported) Patient Home Medication List Home Medication List Reviewed: Yes OB - History Hx of Present Care: Yes Ultrasounds: Abnormal US findings Abnormal Ultrasound Findings: see HPI Information Induced Hypertension: No Maternal Gestational Diabetes: No Obstetrical History Hx : 6 Hx Para: 5 Hx # Term Pregnancies: 4 Hx Termination: No Hx Total # of Abortions (Spona: 1 Hx Multiple Gestation: No Hx Ectopic : No Hx Stillbirth: Yes (at 30wk) Hx Complication: No Hx Induced Hypertens: No Hx Maternal Gestational Diabet: No Delivery History Hx Dystocia: No Hx Placenta Abnormality: Yes (placental previa with current ) Hx Large For Gestational Age I: No Hx Small for Gestational Age I: No Hx Section: No Hx Vaginal Delivery Post C-Sec: No Hx Blood Disorders: No Adverse Rxn to Tranfusion: No Patient Past Medical History History of substance abuse and noncompliance Hx of Hep C antibody positive; negative viral load in 2013 Social History/Family History HIV/AIDS: No Recent Infectious Disease Expo: No Sexually Transmitted Disease: Yes (CHLAMYDIA) Recreational Drug Use: Yes Immunizations Hepatitis A: Yes Hepatitis B: Yes Tetanus Booster (TDap): More than 5yrs Date of Influenza Vaccine: Mar 26, 2015 Rubella: immune RPR/VDRL: Negative GBS Status: Unknown HBsAG: Negative OB - Admission Exam Physical Exam Vitals: Vital Signs 03/02/18 00:31 Temp 98.7 Pulse 100 Resp 18 B/P (MAP) 119/67 (84) O2 Delivery Room Air Abdomen: Soft Heart Rate: 140's Accelerations: Accelerations Present Decelerations: No Decelerations Short Term Variability: Present Hand I Blocker Variability: Average (6-25) Contractions on Admission: None Labs Laboratory Tests Test 03/02/18 00:25 03/02/18 01:05 03/02/18 06:20 Range/Units Urine Color RED H Urine Clarity VERY CLOUDY H Urine pH 6 5-9 Urine Specific [place] 1.025 H 1.016-1.022 Urine Protein 4+ NEGATIVE Urine Glucose (UA) NEGATIVE NEGATIVE Urine Ketones NEGATIVE NEGATIVE Urine Nitrite NEGATIVE NEGATIVE Urine Bilirubin NEGATIVE NEGATIVE Urine Urobilinogen 1 NORMAL MG/DL Urine Leukocyte Esterase 1+ H NEGATIVE Urine RBC (Auto) 5+ H NEGATIVE Urine RBC TNTC H /HPF Urine WBC RARE /HPF Urine Squamous Epithelial Cells 2-5 /HPF Urine Crystals NONE /LPF Urine Bacteria TRACE /HPF Urine Casts NONE /LPF Urine Mucus NEGATIVE /LPF Urine Culture Indicated NO Urine Opiates Screen NEGATIVE NEGATIVE Urine Oxycodone Screen NEGATIVE NEGATIVE Urine Methadone Screen NEGATIVE NEGATIVE Urine Propoxyphene Screen NEGATIVE NEGATIVE Urine Barbiturates Screen NEGATIVE NEGATIVE Ur Tricyclic Antidepressants Screen NEGATIVE NEGATIVE Urine Phencyclidine Screen NEGATIVE NEGATIVE Urine Amphetamines Screen POSITIVE H NEGATIVE Urine Methamphetamines Screen NEGATIVE NEGATIVE Urine Benzodiazepines Screen NEGATIVE NEGATIVE Urine Cocaine Screen NEGATIVE NEGATIVE Urine Cannabinoids Screen POSITIVE H NEGATIVE White Blood Count 19.4 H 18.9 H 4.3-11.0 10^3/uL Red Blood Count 3.52 L 3.59 L 4.35-5.85 10^6/uL Hemoglobin 11.5 11.9 11.5-16.0 G/DL Hematocrit 32 L 33 L 35-52 % Mean Corpuscular Volume 91 91 80-99 FL Mean Corpuscular Hemoglobin 33 33 25-34 PG Mean Corpuscular Hemoglobin Concent 36 36 32-36 G/DL Red Cell Distribution Width 12.3 12.4 10.0-14.5 % Platelet Count 323 322 130-400 10^3/uL Mean Platelet Volume 10.2 10.2 7.4-10.4 FL Neutrophils (%) (Auto) 65 85 H 42-75 % Lymphocytes (%) (Auto) 26 13 12-44 % Monocytes (%) (Auto) 7 2 0-12 % Eosinophils (%) (Auto) 2 0 0-10 % Basophils (%) (Auto) 0 0 0-10 % Neutrophils # (Auto) 12.6 H 16.0 H 1.8-7.8 X 10^3 Lymphocytes # (Auto) 4.9 H 2.5 1.0-4.0 X 10^3 Monocytes # (Auto) 1.4 H 0.3 0.0-1.0 X 10^3 Eosinophils # (Auto) 0.4 H 0.1 0.0-0.3 10^3/uL Basophils # (Auto) 0.0 0.0 0.0-0.1 10^3/uL Neutrophils % (Manual) 68 % Lymphocytes % (Manual) 25 % Monocytes % (Manual) 5 % Eosinophils % (Manual) 0 % Basophils % (Manual) 0 % Band Neutrophils 2 % Blood Morphology Comment NORMAL OB - Assessment/Plan/Diagnosis Assessment Assessment: IUP - (31w2d), vaginal bleeding (with complete placenta previa) Admission Dx at 31w2d GA Placenta Previa w/ vaginal bleeding Illicit drug use Admission Status: Observation Plan Other Plan Transfer to [facility] Dr. Yan accepting physician. 1 dose of Betamethasone given. CYDNEY PEREZ DO Mar 02, 2018 09:22
[2018-03-02 10:00] VITALS: BP 105/56
== END 2018-03-02 10:05 | disposition short-term general hospital (02) ==
LOC: WSo 00:25 → LDRP 00:25 → WSo 02:05 → LDRP 02:05 → UNDOADMOB 02:05 → LDRP 02:14 → UNDODISOB 10:05
PROVIDERS: ADMIT Family Medicine; ATTEND Family Medicine
DX: O44.13 Complete placenta previa with hemorrhage, third trimester (principal); Z3A.31 31 weeks gestation of pregnancy
CPT/HCPCS: 36415; 76815; 80306; 81000; 85007; 85025; 85027; 86850; 86900; 86901; 96361; 96372; 96374; 96375; 99211; G0378

== ENCOUNTER 2018-12-18 06:27 | Emergency (ER) | payer SELFPAY ==
[~2018-12-18] VITALS: Ht 170.2 cm; Wt 84.4 kg
[~2018-12-18 06:27] MED LIST changes: +PREN-142 PO
[2018-12-18] MEDS ORDERED: diphenhydrAMINE 50 MG/ML INJ (BENADRYL) IVP ONE (06:45)
[2018-12-18] MEDS ORDERED: KETOROLAC 30 MG/ML VIAL IVP ONE (06:45)
--- NOTE | 2018-12-18 06:46 | ED Chest Pain ---
General Stated Complaint: CP,NUMB FACE,RT LEG IS NUMB Source: patient (LIMITED HISTORIAN) History of Present Illness Date Seen by Provider: Dec 18, 2018 Time Seen by Provider: 06:32 Initial Comments PT ARRIVES VIA POV C/O CHEST PAIN --BEGAN A COUPLE OF HOURS AGO C/O NUMBNESS AND TINGLING TO HER FACE AND EXTREMITIES--COMES AND GOES PT WITH EXTENSIVE DRUG HISTORY AND STATES SHE HAS BEEN USING ACID AND SMOKING METH--LAST USED A COUPLE OF HOURS PRIOR TO ONSET OF CHEST PAIN HAS NOT TAKEN ANYTHING FOR PAIN NO HISTORY OF SIMILAR NO DR Allergies and Home Medications Allergies Coded Allergies: Penicillins (Unverified Allergy, Unknown, 01/09/14) sertraline (Verified Allergy, Unknown, 03/02/18) Home Medications Vit No.124/Iron/FA 1 Each Tablet, 1 EACH PO DAILY, (Reported) Review of Systems Review of Systems Constitutional: no symptoms reported Respiratory: No Symptoms Reported Cardiovascular: See HPI, Chest Pain Gastrointestinal: See HPI Genitourinary: Other (LMP 1 MONTH AGO, S/P BTL) Musculoskeletal: no symptoms reported Skin: no symptoms reported Psychiatric/Neurological: See HPI, Anxiety, Paresthesia Endocrine: No Symptoms Reported Hematologic/Lymphatic: No Symptoms Reported Past [id number]-[id number]-[id number] Hx Patient Social History Alcohol Use: Denies Use Recreational Drug Use: Yes ("EVERYTHING--YOU NAME IT" DENIES IV USE--METH, THC, ACID, OTHERS) Drug of Choice: METHAMPHETAMINE/THC/ACID, OTHERS. 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 Sexually Transmitted Disease: Yes (CHLAMYDIA) HIV/AIDS: No Genitourinary: No Gastrointestinal: Yes (HEP C ) Liver Disease/Jaundice, Hepatitis Musculoskeletal: No Endocrine: No HEENT: No Loss of Vision: Denies Hearing Impairment: Denies Cancer: No Psychosocial: No Integumentary: No Blood Disorders: No Adverse Reaction/Blood Tranf: No Family Medical History Alcoholism 19 FATHER, Onset: 19 MOTHER, Onset: G8 BROTHER, Onset: G8 SISTER, Onset: Asthma G8 SISTER, Onset:Childhood Diabetes mellitus 19 MOTHER, Onset:40 Drug abuse 19 FATHER, Onset: 19 MOTHER, Onset: G8 BROTHER, Onset: G8 SISTER, Onset: Hypercholesterolemia 19 MOTHER, Onset: Hypertension 19 MOTHER, Onset: Psychosocial problem 19 FATHER, Onset: (Drug and alcohol abuse ) 19 MOTHER, Onset: G8 BROTHER, Onset: G8 SISTER, Onset: Respiratory disorder G8 SISTER, Onset: Severe allergy G8 SISTER, Onset:Childhood (Wasp stings/ anaphylatic shock ) No Family History of: AIDS Abdominal aortic aneurysm Avel's disease Alzheimer's disease Aphasia Arthritis Cancer of mouth Cardiovascular disease Cataracts Colon cancer Completed stroke Congenital disease Congenital heart disease Coronary thrombosis Cystic fibrosis Deafness or hearing loss Dementia Dysphasia Fibrocystic disease of breast Gastroenteritis Glaucoma Headache disorder Infertility Kidney disease Myocardial infarction Neoplasm Not obtainable due to adoption Osteoporosis Parkinson's disease Prostate cancer Seizure disorder Thyroid disease Tuberculosis Visual disorder Physical Exam Vital Signs Vital Signs - First Documented Capillary Refill : Height, Weight, BMI Height: 5'7.00" Weight: 186lbs. 0.0oz. [id number]; 29.1 BMI Method:Stated General Appearance: Anxious, Other (MILD HYPERVENTILATION, CONSTANT MOVEMENTS, APPEARS TO BE UNDER THE INFLUENCE OF SOME SUBSTANCE/S . SPEECH MUMBLED, RAPID AND SOMEWHAT ERRATIC ) HEENT: PERRL/EOMI Neck: Normal Inspection Respiratory: Normal Breath Sounds, No Accessory Muscle Use, No Respiratory Distress, Other (MILD HYPERVENTILATION) Cardiovascular: Regular Rate, Rhythm, No Edema, No JVD, No Murmur, Normal Peripheral Pulses Gastrointestinal: Non Tender, Soft Extremity: Normal Capillary Refill, Normal Inspection, Normal Range of Motion, Non Tender, No Calf Tenderness, No Pedal Edema Neurologic/Psychiatric: Alert, Oriented x3, No Motor/Sensory Deficits, motor tune up specialist II- XII Norm as Tested Skin: Normal Color, Warm/Dry, Tattoos/Piercings Progress/Results/Core Measures Results/Orders Lab Results Laboratory Tests Test 12/18/18 06:43 12/18/18 07:23 Range/Units White Blood Count 8.4 4.3-11.0 10^3/uL Red Blood Count 4.92 4.35-5.85 10^6/uL Hemoglobin 15.0 11.5-16.0 G/DL Hematocrit 43 35-52 % Mean Corpuscular Volume 88 80-99 FL Mean Corpuscular Hemoglobin 31 25-34 PG Mean Corpuscular Hemoglobin Concent 35 32-36 G/DL Red Cell Distribution Width 13.0 10.0-14.5 % Platelet Count 279 130-400 10^3/uL Mean Platelet Volume 9.1 7.4-10.4 FL Neutrophils (%) (Auto) 58 42-75 % Lymphocytes (%) (Auto) 33 12-44 % Monocytes (%) (Auto) 8 0-12 % Eosinophils (%) (Auto) 2 0-10 % Basophils (%) (Auto) 0 0-10 % Neutrophils # (Auto) 4.9 1.8-7.8 X 10^3 Lymphocytes # (Auto) 2.8 1.0-4.0 X 10^3 Monocytes # (Auto) 0.6 0.0-1.0 X 10^3 Eosinophils # (Auto) 0.1 0.0-0.3 10^3/uL Basophils # (Auto) 0.0 0.0-0.1 10^3/uL Prothrombin Time 13.4 12.2-14.7 SEC INR Comment 1.0 0.8-1.4 Activated Partial Thromboplast Time 30 24-35 SEC Sodium Level 140 135-145 MMOL/L Potassium Level 3.6 3.6-5.0 MMOL/L Chloride Level 108 H 98-107 MMOL/L Carbon Dioxide Level 21 21-32 MMOL/L Anion Gap 11 5-14 MMOL/L Blood Urea Nitrogen 11 7-18 MG/DL Creatinine 0.85 0.60-1.30 MG/DL Estimat Glomerular Filtration Rate > 60 BUN/Creatinine Ratio 13 Glucose Level 104 70-105 MG/DL Calcium Level 9.9 8.5-10.1 MG/DL Corrected Calcium 8.5-10.1 MG/DL Magnesium Level 2.0 1.8-2.4 MG/DL Total Bilirubin 0.4 0.1-1.0 MG/DL Aspartate Amino Transf (AST/SGOT) 30 5-34 U/L Alanine Aminotransferase (ALT/SGPT) 74 H 0-55 U/L Alkaline Phosphatase 64 40-136 U/L Total Creatine Kinase 78 29-168 U/L Creatine Kinase MB 1.2 <6.6 NG/ML Myoglobin 37.3 10.0-92.0 NG/ML Troponin I < 0.028 <0.028 NG/ML B-Type Natriuretic Peptide 18.6 <100.0 PG/ML Total Protein 7.4 6.4-8.2 GM/DL Albumin 4.8 H 3.2-4.5 GM/DL Amylase Level 24 L 25-125 U/L Lipase 12 8-78 U/L Serum Test, Qualitative NEGATIVE NEGATIVE Acetaminophen Level < 10 L 10-30 UG/ML Serum Alcohol < 10 <10 MG/DL Urine Color YELLOW Urine Clarity SLIGHTLY CLOUDY Urine pH 8 5-9 Urine Specific [place] 1.010 L 1.016-1.022 Urine Protein NEGATIVE NEGATIVE Urine Glucose (UA) NEGATIVE NEGATIVE Urine Ketones 1+ H NEGATIVE Urine Nitrite NEGATIVE NEGATIVE Urine Bilirubin NEGATIVE NEGATIVE Urine Urobilinogen 1 NORMAL MG/DL Urine Leukocyte Esterase 1+ H NEGATIVE Urine RBC (Auto) NEGATIVE NEGATIVE Urine RBC 0-2 /HPF Urine WBC 2-5 /HPF Urine Squamous Epithelial Cells 5-10 /HPF Urine Crystals PRESENT H /LPF Urine Amorphous Sediment LARGE J LUIS PHOSPHATE H /LPF Urine Bacteria FEW H /HPF Urine Casts NONE /LPF Urine Mucus SMALL H /LPF Urine Culture Indicated YES Urine Opiates Screen NEGATIVE NEGATIVE Urine Oxycodone Screen NEGATIVE NEGATIVE Urine Methadone Screen NEGATIVE NEGATIVE Urine Propoxyphene Screen NEGATIVE NEGATIVE Urine Barbiturates Screen NEGATIVE NEGATIVE Ur Tricyclic Antidepressants Screen NEGATIVE NEGATIVE Urine Phencyclidine Screen NEGATIVE NEGATIVE Urine Amphetamines Screen POSITIVE H NEGATIVE Urine Methamphetamines Screen POSITIVE H NEGATIVE Urine Benzodiazepines Screen NEGATIVE NEGATIVE Urine Cocaine Screen NEGATIVE NEGATIVE Urine Cannabinoids Screen POSITIVE H NEGATIVE My Orders Orders - TYLOR VILLELA DO Acetaminophen (12/18/18 06:38) Alcohol (12/18/18 06:38) Drug Screen Stat (Urine) (12/18/18 06:38) Hcg,Qualitative Serum (12/18/18 06:38) Ua Culture If Indicated (12/18/18 06:38) Cbc With Automated Diff (12/18/18 06:38) Magnesium (12/18/18 06:38) Chest 1 View, Ap/Pa Only (12/18/18 06:38) Ekg Tracing (12/18/18 06:38) Cardiac Profile 1 (12/18/18 06:38) Comprehensive Metabolic Panel (12/18/18 06:38) Myoglobin Serum (12/18/18 06:38) Protime With Inr (12/18/18 06:38) Partial Thromboplastin Time (12/18/18 06:38) O2 (12/18/18 06:38) Monitor-Rhythm Ecg Trace Only (12/18/18 06:38) Lipid Panel (12/19/18 06:00) Ed Iv/Invasive Line Start (12/18/18 06:38) Creatine Kinase (12/18/18 06:38) Creatine Kinase Mb (12/18/18 06:38) Lipase (12/18/18 06:38) Amylase (12/18/18 06:38) BNP (12/18/18 06:38) Troponin I (12/18/18 06:38) Ketorolac Injection (Toradol Injection) (12/18/18 06:45) Diphenhydramine Injection (Benadryl Inje (12/18/18 06:45) Urine Culture (12/18/18 07:23) Medications Given in ED Current Medications Medications Dose Ordered Sig/Amalia Route Start Time Stop Time Status Last Admin Dose Admin Diphenhydramine HCl 50 mg ONCE ONCE IVP 12/18/18 06:45 12/18/18 06:46 DC 12/18/18 06:56 50 MG Ketorolac Tromethamine 30 mg ONCE ONCE IVP 12/18/18 06:45 12/18/18 06:46 DC 12/18/18 06:56 30 MG Vital Signs/I&O 12/18/18 12/18/18 06:32 06:32 Temp 97.1 Pulse 83 Resp 18 B/P (MAP) 109/84 (92) O2 Delivery Room Air Room Air Initial ECG Impression Date: Dec 18, 2018 Initial ECG Impression Time: 06:39 Initial ECG Rate: 80 Initial ECG Rhythm: Normal Sinus Initial ECG Comparisson: No Previous ECG Available Diagnostic Imaging Comments CXR--NO ACUTE PROCESS, PER RADIOLOGIST REPORT AT 0755 Reviewed: Reviewed by Me Departure Impression Primary Impression: Chest pain Additional Impressions: Illicit drug use UTI (urinary tract infection) Disposition: 01 HOME, SELF-CARE Condition: Improved Departure-Patient Inst. Referrals: NO,LOCAL PHYSICIAN (PCP/Family) Primary Care Physician Patient Instructions: Chest Pain That Is Not Caused by the Heart (DC), Chest Pain (DC), Drug Abuse and Drug Addiction (DC), Urinary Tract Infection, Adult (DC) Add. Discharge Instructions: LOTS OF CLEAR LIQUIDS--WATER, BROTH, JELLO, GATORADE NO DRUGS! FOLLOW UP WITH OF ANGELICA IN 2-3 DAYS FOR FURTHER CARE RETURN TO ER IF WORSE Scripts Nitrofurantoin Monohyd/M-Cryst (Macrobid 100 mg Capsule) 100 Mg Capsule 100 MG PO BID, #20 CAP Prov: TYLOR VILLELA DO 12/18/18 TYLOR VILLELA DO Dec 18, 2018 06:45
[2018-12-18 06:51] LABS: BASOPHILS % (AUTO) 0 % (0-10); EOSINOPHILS # (AUTO) 0.1 10^3/uL (0.0-0.3); EOSINOPHILS % (AUTO) 2 % (0-10); HEMATOCRIT 43 % (35-52); LYMPHOCYTES # (AUTO) 2.8 X 10^3 (1.0-4.0); LYMPHOCYTES % (AUTO) 33 % (12-44); MEAN CORPUSCULAR HEMOGLOBIN 31 PG (25-34); MEAN CORPUSCULAR HGB CONC 35 G/DL (32-36); MEAN CORPUSCULAR VOLUME 88 FL (80-99); MEAN PLATELET VOLUME 9.1 FL (7.4-10.4); MONOCYTES # (AUTO) 0.6 X 10^3 (0.0-1.0); MONOCYTES % (AUTO) 8 % (0-12); NEUTROPHILS # (AUTO) 4.9 X 10^3 (1.8-7.8); NEUTROPHILS % (AUTO) 58 % (42-75); PLATELET COUNT 279 10^3/uL (130-400); WHITE BLOOD COUNT 8.4 10^3/uL (4.3-11.0)
[2018-12-18 07:03] LABS: PROTHROMBIN TIME PATIENT 13.4 SEC (12.2-14.7)
[2018-12-18 07:13] LABS: ACETAMINOPHEN < 10 UG/ML (10-30)
[2018-12-18 07:15] LABS: ALANINE AMINOTRANSFERASE 74 U/L (0-55); ALBUMIN 4.8 GM/DL (3.2-4.5); ALKALINE PHOSPHATASE 64 U/L (40-136); AMYLASE 24 U/L (25-125); BILIRUBIN,TOTAL 0.4 MG/DL (0.1-1.0); BUN/CREATININE RATIO 13; CALCIUM 9.9 MG/DL (8.5-10.1); CARBON DIOXIDE 21 MMOL/L (21-32); CHLORIDE 108 MMOL/L (98-107); CREATINE KINASE 78 U/L (29-168); CREATININE SERUM 0.85 MG/DL (0.60-1.30); GFR ESTIMATED > 60; GLUCOSE 104 MG/DL (70-105); LIPASE 12 U/L (8-78); POTASSIUM 3.6 MMOL/L (3.6-5.0); SODIUM 140 MMOL/L (135-145); TOTAL PROTEIN 7.4 GM/DL (6.4-8.2)
[2018-12-18 07:23] LABS: CREATINE KINASE MB 1.2 NG/ML (<6.6)
[2018-12-18 07:29] LABS: BILIRUBIN,URINE NEGATIVE (NEGATIVE); CLARITY,URINE SLIGHTLY CLOUDY; COLOR,URINE YELLOW; GLUCOSE, URINE (UA) NEGATIVE (NEGATIVE); KETONES,URINE 1+ (NEGATIVE); LEUKOCYTE ESTERASE ,URINE 1+ (NEGATIVE); NITRITE,URINE NEGATIVE (NEGATIVE); PH,URINE 8 (5-9); PROTEIN,URINE NEGATIVE (NEGATIVE); UROBILINOGEN,URINE 1 MG/DL (NORMAL)
--- NOTE | 2018-12-18 07:35 | Diagnostic Imaging Report ---
Indication: Chest pain. Comparison: 04/21/2015. Discussion: Single portable upright view of the chest was obtained. No adverse interval change. Stable normal heart size. No focal consolidation, pleural fluid, or pneumothorax. No osseous abnormality. Impression: 1. Negative portable chest. Dictated by: Dictated on workstation # [id number]
[2018-12-18 07:41] LABS: AMORPHOUS SEDIMENT,UR LARGE AMOR PHOSPHATE /LPF; BACTERIA,URINE FEW /HPF; RBC,URINE 0-2 /HPF
[2018-12-18 07:42] LABS: AMPHETAMINE SCREEN, URINE POSITIVE (NEGATIVE); BARBITURATE SCREEN URINE NEGATIVE (NEGATIVE); BENZODIAZEPINES SCREEN URINE NEGATIVE (NEGATIVE); CANNABINOID SCREEN, URINE POSITIVE (NEGATIVE); COCAINE SCREEN URINE NEGATIVE (NEGATIVE); METHADONE STAT NEGATIVE (NEGATIVE); METHAMPHETAMINE SCREEN URINE S POSITIVE (NEGATIVE); OPIATE SCREEN URINE NEGATIVE (NEGATIVE); OXYCODONE STAT NEGATIVE (NEGATIVE); PROPOXYPHENE STAT NEGATIVE (NEGATIVE); TRICYCLIC ANTIDEPRESSANTS SCRE NEGATIVE (NEGATIVE)
[2018-12-18] MEDS ORDERED: NITR-65 PO (08:00)
[2018-12-18 08:02] VITALS: BP 109/84
--- NOTE | 2018-12-18 08:02 | NUR ---
UPON DC PT WOULD NOT SIGN DISCHARGE PAPERWORK OR ALLOW ME TO REPEAT HER VITALS.
== END 2018-12-18 08:02 | disposition home or self-care (01) ==
LOC: EDUNIT# 06:27 → ER 06:29
DX: F15.10 Other stimulant abuse, uncomplicated (principal); F12.10 Cannabis abuse, uncomplicated; R07.9 Chest pain, unspecified; N39.0 Urinary tract infection, site not specified; B19.20 Unspecified viral hepatitis C without hepatic coma; F17.210 Nicotine dependence, cigarettes, uncomplicated; Z98.51 Tubal ligation status; Z88.0 Allergy status to penicillin; Z88.8 Allergy status to other drugs, medicaments and biological substances
CPT/HCPCS: 36415; 71045; 80053; 80306; 80320; 80329; 81000; 82150; 82550; 82553; 83690; 83735; 83874; 83880; 84484; 84703; 85025; 85610; 85730; 87088; 93005; 93041; 96374; 96375

== ENCOUNTER 2019-02-25 19:23 | Emergency (ER) | payer SELFPAY ==
[~2019-02-25] VITALS: Ht 170 cm; Wt 68.0 kg
--- NOTE | 2019-02-25 19:53 | ED Integumentary General ---
General Chief Complaint: Skin/Wound Problems Stated Complaint: FEVER,HEART RACING, WOUND COMPLICATIONS Nursing Triage Note: PT ABMULATE TO ROOM 01 WITHOUT DIFFICULTY WITH C/O ABSCESS UNDER LEFT ARM. [facility] AND THEY TRIED TO OPEN IT UP AND NOTHING CAME OUT. Source: patient Exam Limitations: no limitations History of Present Illness Date Seen by Provider: Feb 25, 2019 Time Seen by Provider: 19:51 Initial Comments To ER with an abscess to the left axilla. Present for 2 days, seen at [facility] last night, states they tried to drain it but didn't get anything out. They gave her prescription for antibiotics but she states she cannot afford any antibiotics right now She did not get them filled. Timing/Duration: constant Severity: moderate Associated Symptoms: denies symptoms Allergies and Home Medications Allergies Coded Allergies: Penicillins (Unverified Allergy, Unknown, 01/09/14) sertraline (Verified Allergy, Unknown, 03/02/18) Home Medications Nitrofurantoin Monohyd/M-Cryst 100 Mg Capsule, 100 MG PO BID Prescribed by: TYLOR VILLELA on 12/18/18 0800 Vit No.124/Iron/FA 1 Each Tablet, 1 EACH PO DAILY, (Reported) Patient Home Medication List Home Medication List Reviewed: Yes Review of Systems Review of Systems Constitutional: see HPI EENTM: see HPI Respiratory: no symptoms reported Cardiovascular: no symptoms reported Genitourinary: no symptoms reported Musculoskeletal: see HPI Skin: see HPI Psychiatric/Neurological: No Symptoms Reported Endocrine: No Symptoms Reported Past Ucanyvk-Hbutth-Wxcstv Hx Patient Social History Drug of Choice: METHAMPHETAMINE/THC/ACID, OTHERS. 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 Sexually Transmitted Disease: Yes (CHLAMYDIA) HIV/AIDS: No Genitourinary: No Gastrointestinal: Yes (HEP C ) Liver Disease/Jaundice, Hepatitis Musculoskeletal: No Endocrine: No HEENT: No Loss of Vision: Denies Hearing Impairment: Denies Cancer: No Psychosocial: No Integumentary: No Blood Disorders: No Adverse Reaction/Blood Tranf: No Family Medical History Alcoholism 19 FATHER, Onset:15 19 MOTHER, Onset:15's - G8 BROTHER, Onset:15 - G8 SISTER, Onset:15 Asthma G8 SISTER, Onset:Childhood Diabetes mellitus 19 MOTHER, Onset:40s Drug abuse 19 FATHER, Onset:15 19 MOTHER, Onset:15 - G8 BROTHER, Onset:15 G8 SISTER, Onset: Hypercholesterolemia 19 MOTHER, Onset: Hypertension 19 MOTHER, Onset: Psychosocial problem 19 FATHER, Onset: (Drug and alcohol abuse ) 19 MOTHER, Onset:15 G8 BROTHER, Onset:15 G8 SISTER, Onset: Respiratory disorder G8 SISTER, Onset: Severe allergy G8 SISTER, Onset:Childhood (Wasp stings/ anaphylatic shock ) No Family History of: AIDS Abdominal aortic aneurysm [place]'s disease Alzheimer's disease Aphasia Arthritis Cancer of mouth Cardiovascular disease Cataracts Colon cancer Completed stroke Congenital disease Congenital heart disease Coronary thrombosis Cystic fibrosis Deafness or hearing loss Dementia Dysphasia Fibrocystic disease of breast Gastroenteritis Glaucoma Headache disorder Infertility Kidney disease Myocardial infarction Neoplasm Not obtainable due to adoption Osteoporosis Parkinson's disease Prostate cancer Seizure disorder Thyroid disease Tuberculosis Visual disorder Physical Exam Vital Signs Vital Signs - First Documented 02/25/19 19:45 Temp 37.1 Pulse 97 Resp 13 B/P (MAP) 115/73 (87) Pulse Ox 99 O2 Delivery Room Air Capillary Refill : Less Than 3 Seconds General Appearance: WD/WN, no apparent distress Neck: non-tender, full range of motion Respiratory: no respiratory distress, no accessory muscle use Neurologic/Psychiatric: alert, normal mood/affect, oriented x 3 Skin: normal color, warm/dry Skin Problem Character: abscess, other (5 x 6 cm area of erythema with an underlying area of induration that measures about 3 x 3 cm.) Progress/Results/Core Measures Results/Orders Lab Results Laboratory Tests Test 02/25/19 19:58 02/25/19 20:03 Range/Units White Blood Count 12.3 H 4.3-11.0 10^3/uL Red Blood Count 4.26 L 4.35-5.85 10^6/uL Hemoglobin 12.7 11.5-16.0 G/DL Hematocrit 38 35-52 % Mean Corpuscular Volume 89 80-99 FL Mean Corpuscular Hemoglobin 30 25-34 PG Mean Corpuscular Hemoglobin Concent 33 32-36 G/DL Red Cell Distribution Width 13.1 10.0-14.5 % Platelet Count 257 130-400 10^3/uL Mean Platelet Volume 9.3 7.4-10.4 FL Neutrophils (%) (Auto) 78 H 42-75 % Lymphocytes (%) (Auto) 14 12-44 % Monocytes (%) (Auto) 7 0-12 % Eosinophils (%) (Auto) 2 0-10 % Basophils (%) (Auto) 0 0-10 % Neutrophils # (Auto) 9.6 H 1.8-7.8 X 10^3 Lymphocytes # (Auto) 1.7 1.0-4.0 X 10^3 Monocytes # (Auto) 0.8 0.0-1.0 X 10^3 Eosinophils # (Auto) 0.2 0.0-0.3 10^3/uL Basophils # (Auto) 0.0 0.0-0.1 10^3/uL Sodium Level 136 135-145 MMOL/L Potassium Level 3.4 L 3.6-5.0 MMOL/L Chloride Level 105 98-107 MMOL/L Carbon Dioxide Level 22 21-32 MMOL/L Anion Gap 9 5-14 MMOL/L Blood Urea Nitrogen 11 7-18 MG/DL Creatinine 0.79 0.60-1.30 MG/DL Estimat Glomerular Filtration Rate > 60 BUN/Creatinine Ratio 14 Glucose Level 97 70-105 MG/DL Calcium Level 9.1 8.5-10.1 MG/DL Corrected Calcium 8.9 8.5-10.1 MG/DL Total Bilirubin 0.7 0.1-1.0 MG/DL Aspartate Amino Transf (AST/SGOT) 17 5-34 U/L Alanine Aminotransferase (ALT/SGPT) 20 0-55 U/L Alkaline Phosphatase 67 40-136 U/L Total Protein 6.9 6.4-8.2 GM/DL Albumin 4.3 3.2-4.5 GM/DL Serum Test, Qualitative NEGATIVE NEGATIVE Urine Color YELLOW Urine Clarity CLEAR Urine pH 6 5-9 Urine Specific [place] 1.010 L 1.016-1.022 Urine Protein 1+ H NEGATIVE Urine Glucose (UA) NEGATIVE NEGATIVE Urine Ketones NEGATIVE NEGATIVE Urine Nitrite NEGATIVE NEGATIVE Urine Bilirubin NEGATIVE NEGATIVE Urine Urobilinogen NORMAL NORMAL MG/DL Urine Leukocyte Esterase 3+ H NEGATIVE Urine RBC (Auto) 4+ H NEGATIVE Urine RBC 10-25 H /HPF Urine WBC 10-25 H /HPF Urine Squamous Epithelial Cells 25-50 H /HPF Urine Crystals NONE /LPF Urine Bacteria FEW H /HPF Urine Casts NONE /LPF Urine Mucus LARGE H /LPF Urine Culture Indicated YES Urine Opiates Screen NEGATIVE NEGATIVE Urine Oxycodone Screen NEGATIVE NEGATIVE Urine Methadone Screen NEGATIVE NEGATIVE Urine Propoxyphene Screen NEGATIVE NEGATIVE Urine Barbiturates Screen NEGATIVE NEGATIVE Ur Tricyclic Antidepressants Screen NEGATIVE NEGATIVE Urine Phencyclidine Screen NEGATIVE NEGATIVE Urine Amphetamines Screen POSITIVE H NEGATIVE Urine Methamphetamines Screen POSITIVE H NEGATIVE Urine Benzodiazepines Screen NEGATIVE NEGATIVE Urine Cocaine Screen NEGATIVE NEGATIVE Urine Cannabinoids Screen POSITIVE H NEGATIVE My Orders Orders - SHANI LAWSON VAMP MAKER Ua Culture If Indicated (02/25/19 19:48) Hcg,Qualitative Serum (02/25/19 19:48) Comprehensive Metabolic Panel (02/25/19 19:48) Cbc With Automated Diff (02/25/19 19:48) Ed Iv/Invasive Line Start (02/25/19 19:48) Drug Screen Stat (Urine) (02/25/19 19:48) Fentanyl Injection (Sublimaze Injection (02/25/19 20:15) Urine Culture (02/25/19 20:03) Clindamycin 900 Mg/50 Ml Ivpb (Cleocin P (02/25/19 20:45) Medications Given in ED Current Medications Medications Dose Ordered Sig/Amalia Route Start Time Stop Time Status Last Admin Dose Admin Clindamycin Phosphate/Dextrose 50 ml @ 100 mls/hr ONCE ONCE IV 02/25/19 20:45 02/25/19 21:14 02/25/19 20:49 100 MLS/HR Fentanyl Citrate 50 mcg ONCE ONCE IVP 02/25/19 20:15 02/25/19 20:16 DC 02/25/19 20:20 50 MCG Vital Signs/I&O 02/25/19 19:45 Temp 37.1 Pulse 97 Resp 13 B/P (MAP) 115/73 (87) Pulse Ox 99 O2 Delivery Room Air Blood Pressure Mean: 87 Departure Communication (Admissions) Bedside ultrasound by me fails to reveal any drainable fluid collection, there is cobblestoning of the subcutaneous tissue Impression Primary Impression: Abscess of left axilla Disposition: HOME, SELF-CARE Condition: Stable Departure-Patient Inst. Decision time for Depature: 20:54 Referrals: NO,LOCAL PHYSICIAN (PCP/Family) Primary Care Physician Patient Instructions: Skin Abscess Add. Discharge Instructions: 1. Warm compresses to this area.even though there is no drainable fluid collection now, you may very well developed a drainable fluid collection of pus in the next few days. Take antibiotics as directed. Return to ER for any concerns. All discharge instructions reviewed with patient and/or family. Voiced understanding. Scripts Sulfamethoxazole/Trimethoprim (Bactrim Ds Tablet) 1 Each Tablet 1 EACH PO BID, #14 TAB Prov: SHANI LAWSON APRN 02/25/19 Cephalexin (Keflex) 500 Mg Capsule 500 MG PO QID, #28 CAP Prov: SHANI LAWSON VAMP MAKER 02/25/19 SHANI LAWSON VAMP MAKER Feb 25, 2019 19:52
[2019-02-25 20:10] LABS: BILIRUBIN,URINE NEGATIVE (NEGATIVE); CLARITY,URINE CLEAR; COLOR,URINE YELLOW; GLUCOSE, URINE (UA) NEGATIVE (NEGATIVE); KETONES,URINE NEGATIVE (NEGATIVE); LEUKOCYTE ESTERASE ,URINE 3+ (NEGATIVE); NITRITE,URINE NEGATIVE (NEGATIVE); PH,URINE 6 (5-9); PROTEIN,URINE 1+ (NEGATIVE); UROBILINOGEN,URINE NORMAL (NORMAL)
[2019-02-25 20:13] LABS: BASOPHILS % (AUTO) 0 % (0-10); EOSINOPHILS # (AUTO) 0.2 10^3/uL (0.0-0.3); EOSINOPHILS % (AUTO) 2 % (0-10); HEMATOCRIT 38 % (35-52); HEMOGLOBIN 12.7 G/DL (11.5-16.0); LYMPHOCYTES # (AUTO) 1.7 X 10^3 (1.0-4.0); LYMPHOCYTES % (AUTO) 14 % (12-44); MEAN CORPUSCULAR HEMOGLOBIN 30 PG (25-34); MEAN CORPUSCULAR HGB CONC 33 G/DL (32-36); MEAN CORPUSCULAR VOLUME 89 FL (80-99); MEAN PLATELET VOLUME 9.3 FL (7.4-10.4); MONOCYTES # (AUTO) 0.8 X 10^3 (0.0-1.0); MONOCYTES % (AUTO) 7 % (0-12); NEUTROPHILS # (AUTO) 9.6 X 10^3 (1.8-7.8); NEUTROPHILS % (AUTO) 78 % (42-75); PLATELET COUNT 257 10^3/uL (130-400); RED CELL DISTRIBUTION WIDTH 13.1 % (10.0-14.5); WHITE BLOOD COUNT 12.3 10^3/uL (4.3-11.0)
[2019-02-25] MEDS ORDERED: fentaNYL INJECTION 100 MCG/2 ML AMP IVP ONE (20:15)
[2019-02-25 20:25] LABS: AMPHETAMINE SCREEN, URINE POSITIVE (NEGATIVE); BARBITURATE SCREEN URINE NEGATIVE (NEGATIVE); BENZODIAZEPINES SCREEN URINE NEGATIVE (NEGATIVE); CANNABINOID SCREEN, URINE POSITIVE (NEGATIVE); COCAINE SCREEN URINE NEGATIVE (NEGATIVE); METHADONE STAT NEGATIVE (NEGATIVE); METHAMPHETAMINE SCREEN URINE S POSITIVE (NEGATIVE); OPIATE SCREEN URINE NEGATIVE (NEGATIVE); OXYCODONE STAT NEGATIVE (NEGATIVE); PROPOXYPHENE STAT NEGATIVE (NEGATIVE); TRICYCLIC ANTIDEPRESSANTS SCRE NEGATIVE (NEGATIVE)
[2019-02-25 20:33] LABS: BACTERIA,URINE FEW /HPF
[2019-02-25 20:34] LABS: SQUAMOUS EPITHELIAL CELL,UR 25-50 /HPF
[2019-02-25 20:37] LABS: ALANINE AMINOTRANSFERASE 20 U/L (0-55); ALBUMIN 4.3 GM/DL (3.2-4.5); ALKALINE PHOSPHATASE 67 U/L (40-136); BILIRUBIN,TOTAL 0.7 MG/DL (0.1-1.0); BUN/CREATININE RATIO 14; CALCIUM 9.1 MG/DL (8.5-10.1); CARBON DIOXIDE 22 MMOL/L (21-32); CHLORIDE 105 MMOL/L (98-107); CREATININE SERUM 0.79 MG/DL (0.60-1.30); GFR ESTIMATED > 60; GLUCOSE 97 MG/DL (70-105); POTASSIUM 3.4 MMOL/L (3.6-5.0); SODIUM 136 MMOL/L (135-145); TOTAL PROTEIN 6.9 GM/DL (6.4-8.2)
[2019-02-25] MEDS ORDERED: CLINDAMYCIN 900 MG/50 ML IVPB 50 ML IV ONE (20:45)
[2019-02-25] MEDS ORDERED: SULF1TAB35 PO (20:56)
[2019-02-25] MEDS ORDERED: CEPH-507 PO (20:56)
[2019-02-25] MEDS ORDERED: RX-CLINDAMYCIN 150 MG (CLEOCIN) CAP PPK#4 PO STA (20:59)
[2019-02-25] MEDS ORDERED: RX-HYDROCODONE/APAP 5/325 MG #4 TAB PK PO PRN (21:00)
[2019-02-25 21:35] VITALS: BP 119/62
== END 2019-02-25 21:35 | disposition home or self-care (01) ==
LOC: EDUNIT# 19:23 → ER 19:25
DX: L02.412 Cutaneous abscess of left axilla (principal); B19.20 Unspecified viral hepatitis C without hepatic coma; Z88.0 Allergy status to penicillin; Z88.8 Allergy status to other drugs, medicaments and biological substances; Z98.51 Tubal ligation status; Z82.49 Family history of ischemic heart disease and other diseases of the circulatory system
CPT/HCPCS: 36415; 80053; 80306; 81000; 84703; 85025; 87077; 87088

== ENCOUNTER 2019-12-12 09:49 | Emergency (ER) | payer SELFPAY ==
[~2019-12-12] VITALS: Ht 170.1 cm; Wt 72.5 kg
[~2019-12-12 09:49] MED LIST changes: +CEPH-507 PO
--- NOTE | 2019-12-12 11:23 | NUR ---
assisted Dr. Feldman with abdominal exam
--- NOTE | 2019-12-12 11:41 | ED General ---
General Chief Complaint: General Problems/Pain Stated Complaint: VAGINAL BUMP Nursing Triage Note: Pt c/o "knots" in the pelvic area that have been present for longer than a year. Pt describes as burning pain that is worse with walking. Pt reports "burning like it's on fire." Pt c/o nausea. Pt has been seen at the ER in the past for same condition and was told a biopsy was needed. Pt never followed up. Nursing Sepsis Screen: No Definite Risk Source of Information: Patient Exam Limitations: No Limitations (DENISE HAMILTON MED STUDENT) History of Present Illness Date Seen by Provider: Dec 12, 2019 Time Seen by Provider: 11:10 Initial Comments Ms. Cat is a 29 year old female who presents to the emergency department this morning with complains of "knots" along her lower abdomen and pelvis. One knot has been present for over a year but she noticed the other more recently. She describes the pain as a "hot" "burning" pain. Abdominal surgeries include a section. She denies any redness or draining to the area. She was previ ously seen at the ED for the same complaints in [place] in August. She states they did an ultrasound at that time and referred her to a surgeon to have the area biopsied. (DENISE HAMILTON MED STUDENT) Allergies and Home Medications Allergies Coded Allergies: Penicillins (Unverified Allergy, Unknown, 01/09/14) sertraline (Verified Allergy, Unknown, 03/02/18) Home Medications Cephalexin 500 Mg Capsule, 500 MG PO QID Prescribed by: SHANI LAWSON on 02/25/192055 Nitrofurantoin Monohyd/M-Cryst 100 Mg Capsule, 100 MG PO BID Prescribed by: TYLOR VILLELA on 12/18/18 0800 Vit No.124/Iron/FA 1 Each Tablet, 1 EACH PO DAILY, (Reported) Sulfamethoxazole/Trimethoprim 1 Each Tablet, 1 EACH PO BID Prescribed by: SHANI LAWSON on 02/25/192055 Patient Home Medication List Home Medication List Reviewed: Yes (DENISE HAMILTON,MIKHAIL STUDENT) Review of Systems Review of Systems Constitutional: no symptoms reported EENTM: no symptoms reported Respiratory: no symptoms reported Cardiovascular: no symptoms reported Gastrointestinal: see HPI Genitourinary: see HPI Skin: see HPI Psychiatric/Neurological: No Symptoms Reported Hematologic/Lymphatic: No Symptoms Reported (DENISE HAMILTON MED STUDENT) Past Kdkcyro-Imfqus-Hfxxnl Hx Patient Social History Alcohol Use: Occasionally Uses 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 Sexually Transmitted Disease: Yes (CHLAMYDIA) HIV/AIDS: No Genitourinary: No Gastrointestinal: Yes (HEP C ) Liver Disease/Jaundice, Hepatitis Musculoskeletal: No Endocrine: No HEENT: No Loss of Vision: Denies Hearing Impairment: Denies Cancer: No Psychosocial: Yes (night terrors ) Anxiety, Depression Integumentary: No Blood Disorders: No Adverse Reaction/Blood Tranf: No (DENISE HAMILTON,MIKHAIL STUDENT) Family Medical History Alcoholism 19 FATHER, Onset:15's - 19 MOTHER, Onset:15's - 20 G8 BROTHER, Onset:15's - 20 G8 SISTER, Onset:15's - Asthma G8 SISTER, Onset:Childhood Diabetes mellitus 19 MOTHER, Onset:40's - 50 Drug abuse 19 FATHER, Onset:15's - 20 19 MOTHER, Onset:15's - 20 G8 BROTHER, Onset:15's - 20 G8 SISTER, Onset:15's - 20 Hypercholesterolemia 19 MOTHER, Onset:40's - 50 Hypertension 19 MOTHER, Onset:40's - 50 Psychosocial problem 19 FATHER, Onset:15's - 20 (Drug and alcohol abuse ) 19 MOTHER, Onset:15's - 20 G8 BROTHER, Onset:15's - 20 G8 SISTER, Onset:15s - Respiratory disorder G8 SISTER, Onset:15s - 20 Severe allergy G8 SISTER, Onset:Childhood (Wasp stings/ anaphylatic shock ) No Family History of: AIDS Abdominal aortic aneurysm Clay's disease Alzheimer's disease Aphasia Arthritis Cancer of mouth Cardiovascular disease Cataracts Colon cancer Completed stroke Congenital disease Congenital heart disease Coronary thrombosis Cystic fibrosis Deafness or hearing loss Dementia Dysphasia Fibrocystic disease of breast Gastroenteritis Glaucoma Headache disorder Infertility Kidney disease Myocardial infarction Neoplasm Not obtainable due to adoption Osteoporosis Parkinson's disease Prostate cancer Seizure disorder Thyroid disease Tuberculosis Visual disorder Physical Exam Vital Signs Vital Signs - First Documented 12/12/19 10:06 Temp 36.3 Pulse 88 Resp 20 B/P (MAP) 113/80 (91) Pulse Ox 96 O2 Delivery Room Air (MOIRA KERN MD) Vital Signs Capillary Refill : Less Than 3 Seconds (DENISE HAMILTON,MIKHAIL STUDENT) Height, Weight, BMI Height: 5'7.00" Weight: 186lbs. 0.0oz. [id number]; 25.00 BMI Method:Stated (DENISE HAMILTON,MIKHAIL STUDENT) General Appearance: No Apparent Distress, WD/WN HEENT: Normal ENT Inspection Neck: Normal Inspection Respiratory: Lungs Clear, Normal Breath Sounds, No Accessory Muscle Use Cardiovascular: Regular Rate, Rhythm, No Edema, No Murmur, Normal Peripheral Pulses Gastrointestinal: Other (There are 2 nodular densities near the scar over her lower abdomen. Each of these areas is tender to the touch. There are no superficial inflammatory changes. 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 Norm as Tested (MOIRA KERN MD) Progress/Results/Core Measures Suspected Sepsis Recent Fever Within 48 Hours: No Infection Criteria Present: None New/Unexplained Altered Menta: No Sepsis Screen: No Definite Risk SIRS Temperature: Pulse: 88 Respiratory Rate: 20 Blood Pressure 113 /80 Mean: 91 (DENISE HAMILTON,MIKHAIL STUDENT) Results/Orders Vital Signs/I&O 12/12/19 12/12/19 10:06 12:13 Temp 36.3 36.3 Pulse 88 82 Resp 20 20 B/P (MAP) 113/80 (91) 112/79 (91) Pulse Ox 96 96 O2 Delivery Room Air Room Air (MOIRA KERN MD) Vital Signs/I&O Capillary Refill : Less Than 3 Seconds (DENISE HAMILTON,MED STUDENT) Blood Pressure Mean: 91 Progress Note : Progress Note The nodular masses may be incisional hernias or lipomas. Patient was advised to follow-up with a surgeon or night manager for further evaluation. She stated an ultrasound done in the emergency room in [place] was inconclusive and she had been advised to follow-up with the surgeon. See discharge instructions. (MOIRA KERN MD) Departure Impression Primary Impression: Abdominal wall mass Disposition: HOME, SELF-CARE Condition: Improved Departure-Patient Inst. Decision time for Depature: 11:30 (MOIRA KERN MD) Referrals: [facility] PRISCILA AMADOR BRETT D DO NEYMAR,LOCAL PHYSICIAN (PCP) Primary Care Physician Patient Instructions: NO INSTRUCTIONS GIVEN Add. Discharge Instructions: The exact cause of your abdominal wall masses is not known but they may be related to incisional hernias or lipomas. You need to see a general surgeon or night manager to help determine the cause. In the meantime you may treat pain with Tylenol and/or ibuprofen. Avoid straining of the abdomen which could worsen the problem. Return to care if you have significant worsening of symptoms and require more urgent attention. Complete financial analysis advisor paperwork with the hospital to help you get the care you need. Below are listed the names of some [facility] surgeons and the [facility] of [facility]. All discharge instructions reviewed with patient and/or family. Voiced understanding. DENISE HAMILTON MED STUDENT Dec 12, 2019 11:41 MOIRA KERN MD Dec 12, 2019 12:00
[2019-12-12 12:13] VITALS: BP 112/79
== END 2019-12-12 12:11 | disposition home or self-care (01) ==
LOC: EDUNIT# 09:49 → ER 09:50
DX: Z87.42 Personal history of other diseases of the female genital tract (principal); R22.2 Localized swelling, mass and lump, trunk; Z87.19 Personal history of other diseases of the digestive system
CPT/HCPCS: 99282

== ENCOUNTER 2020-04-21 04:42 | Emergency (ER) | payer SELFPAY ==
[~2020-04-21] VITALS: Ht 170 cm; Wt 81.0 kg
[2020-04-21 04:50] VITALS: BP 134/87
--- NOTE | 2020-04-21 05:13 | ED GU-Female ---
General Chief Complaint: Abdominal/GI Problems Stated Complaint: LOWER ABD PAIN Nursing Triage Note: PT CO OF LOWER ABD PAIN AND VAGINAL DISCHARGE STARTED YESTERDAY WHITISH, BUT STATES PERIOD FINISHED YESTERDAY, STATES HAS ODOR SMELL LIKE "TRASH". PT STATES MAYBE HURTS BECAUSE HAS BEEN DRINK ALOT AT LEAST 2-3PT VODKA DAILY. Nursing Sepsis Screen: No Definite Risk Source: patient Exam Limitations: no limitations History of Present Illness Date Seen by Provider: Apr 21, 2020 Time Seen by Provider: 04:52 Initial Comments Patient presents ER by private conveyance with chief complaint last week she is developing some heavy discharge malodorous as well as for the past couple months she's had large nodules in her suprapubic region. She went to [place] and was told she needed to have them biopsied. She never followed up with surgeon to have this done. She does not follow with a doctor routinely nor does she have any known medical history. She is not having any fevers chills weight loss nausea vomiting diarrhea. Patient is known to Dr. TATE as she delivered her kids many years ago. Allergies and Home Medications Allergies Coded Allergies: Penicillins (Unverified Allergy, Unknown, 01/09/14) sertraline (Verified Allergy, Unknown, 03/02/18) Home Medications Cephalexin 500 Mg Capsule, 500 MG PO QID Prescribed by: SHANI LAWSON on 02/25/192055 Doxycycline Hyclate 100 Mg Tablet, 100 MG PO BID Prescribed by: HARJINDER MONGE on 04/21/20 0545 Nitrofurantoin Monohyd/M-Cryst 100 Mg Capsule, 100 MG PO BID Prescribed by: TYLOR VILLELA on 12/18/18 0800 Vit No.124/Iron/FA 1 Each Tablet, 1 EACH PO DAILY, (Reported) Sulfamethoxazole/Trimethoprim 1 Each Tablet, 1 EACH PO BID Prescribed by: SHANI LAWSON on 02/25/192055 Patient Home Medication List Home Medication List Reviewed: Yes Review of Systems Review of Systems Constitutional: No chills, No diaphoresis EENTM: No ear discharge, No ear pain Respiratory: No cough, No short of breath Cardiovascular: No chest pain, No edema Gastrointestinal: No abdominal pain, No constipation Genitourinary: denies discharge, denies dysuria Musculoskeletal: No back pain, No joint pain Skin: No pruritus, No rash All Other Systemes Reviewed Negative Unless Noted: Yes Past Ahnqaht-Noamwi-Rcucsm Hx Patient Social History Alcohol Use: Regular Use Number of Drinks Today: 9 Alcohol Beverage of Choice: Vodka Recreational Drug Use: Yes (UDS - +amphetamines & cannabanoids) Drug of Choice: METHAMPHETAMINE/THC/ACID, OTHERS. Smoking Status: Current Everyday Smoker Type Used: Cigarettes 2nd Hand Smoke Exposure: Yes Recent Foreign Travel: No Contact w/Someone Who Travel: No Recent Infectious Disease Expo: No Recent Hopitalizations: No Physical Abuse: No Sexual Abuse: No Immunizations Up To Date Tetanus Booster (TDap): More than 5yrs PED Vaccines UTD: Yes Date of Influenza Vaccine: Mar 26, 2015 Seasonal Allergies Seasonal Allergies: No Past Medical History Surgeries: Yes ( X 1 03/18/18) Section, Tubal Ligation Respiratory: No Cardiac: No Neurological: No : No Last Menstrual Period: Apr 18, 2020 Reproductive Disorders: No 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 Sexually Transmitted Disease: Yes (CHLAMYDIA) HIV/AIDS: No Genitourinary: No Gastrointestinal: Yes (HEP C ) Liver Disease/Jaundice, Hepatitis Musculoskeletal: No Endocrine: No HEENT: No Loss of Vision: Denies Hearing Impairment: Denies Cancer: No Psychosocial: Yes (night terrors ) Anxiety, Depression Integumentary: No Blood Disorders: No Adverse Reaction/Blood Tranf: No Family Medical History Alcoholism 19 FATHER, Onset:15's - 19 MOTHER, Onset:15's - G8 BROTHER, Onset:15 - G8 SISTER, Onset: - Asthma G8 SISTER, Onset:Childhood Diabetes mellitus 19 MOTHER, Onset:40's - 50 Drug abuse 19 FATHER, Onset:15's - 19 MOTHER, Onset:15's - 20 G8 BROTHER, Onset:15's - G8 SISTER, Onset:15's - Hypercholesterolemia 19 MOTHER, Onset:40's - 50 Hypertension 19 MOTHER, Onset:40's - 50 Psychosocial problem 19 FATHER, Onset:15s (Drug and alcohol abuse ) 19 MOTHER, Onset:15's - 20 G8 BROTHER, Onset:15's - G8 SISTER, Onset:15 - Respiratory disorder G8 SISTER, Onset:15 - 20 Severe allergy G8 SISTER, Onset:Childhood (Wasp stings/ anaphylatic shock ) No Family History of: AIDS Abdominal aortic aneurysm Republic's disease Alzheimer's disease Aphasia Arthritis Cancer of mouth Cardiovascular disease Cataracts Colon cancer Completed stroke Congenital disease Congenital heart disease Coronary thrombosis Cystic fibrosis Deafness or hearing loss Dementia Dysphasia Fibrocystic disease of breast Gastroenteritis Glaucoma Headache disorder Infertility Kidney disease Myocardial infarction Neoplasm Not obtainable due to adoption Osteoporosis Parkinson's disease Prostate cancer Seizure disorder Thyroid disease Tuberculosis Visual disorder Physical Exam Vital Signs Vital Signs - First Documented 04/21/20 04:50 Temp 35.0 Pulse 85 Resp 20 B/P (MAP) 134/87 (103) Pulse Ox 99 Capillary Refill : Less Than 3 Seconds Height, Weight, BMI Height: 5'7.00" Weight: 186lbs. 0.0oz. 84.926884ct; 28.00 BMI Method:Stated General Appearance: WD/WN, mild distress HEENT: PERRL/EOMI, normal ENT inspection Cardiovascular: normal peripheral pulses, regular rate, rhythm Respiratory: no respiratory distress, no accessory muscle use Gastrointestinal: other (1 x 2.5 cm nodules 2 in her suprapubic region that are firm, rubbery, fixed and minimally tender to palpation.) Pelvic: normal external exam, normal adnexa, no cerv. motion tender, discharge (thin, whitish green), mass (1 x 2 cm rubbery firm nodules in the suprapubic region palpable on pelvic examination.) Extremities: normal inspection, normal capillary refill Neurologic/Psychiatric: alert, normal mood/affect, oriented x 3 Progress/Results/Core Measures Suspected Sepsis Recent Fever Within 48 Hours: No Infection Criteria Present: None New/Unexplained Altered Menta: No Sepsis Screen: No Definite Risk SIRS Temperature: Pulse: 85 Respiratory Rate: 20 Blood Pressure 134 /87 Mean: 103 Results/Orders Lab Results Laboratory Tests Test 04/21/20 05:00 04/21/20 05:25 Range/Units Urine Color YELLOW Urine Clarity SL CLOUDY Urine pH 6.5 5-9 Urine Specific Rosenberg 1.025 H 1.016-1.022 Urine Protein NEGATIVE NEGATIVE Urine Glucose (UA) NEGATIVE NEGATIVE Urine Ketones TRACE H NEGATIVE Urine Nitrite NEGATIVE NEGATIVE Urine Bilirubin NEGATIVE NEGATIVE Urine Urobilinogen 0.2 < = 1.0 MG/DL Urine Leukocyte Esterase NEGATIVE NEGATIVE Urine RBC (Auto) NEGATIVE NEGATIVE Urine RBC NONE /HPF Urine WBC 0-2 /HPF Urine Squamous Epithelial Cells 2-5 /HPF Urine Crystals NONE /LPF Urine Bacteria MODERATE H /HPF Urine Casts NONE /LPF Urine Mucus MODERATE H /LPF Urine Culture Indicated YES My Orders Orders - HARJINDER MONGE Ua Culture If Indicated (04/21/20 04:50) Urine Bedside (04/21/20 04:50) Ceftriaxone For Im Use (Rocephin For Im (04/21/20 05:15) Azithromycin Tablet (Zithromax Tablet) (04/21/20 05:15) Lidocaine 1% Inj 20 Ml (Xylocaine 1% Inj (04/21/20 05:15) Wet Prep (04/21/20 05:03) Neisseria Gonorrhea Swab (04/21/20 05:03) Chlamydia Trachomatis Swab (04/21/20 05:03) Syphilis Antibody Screen (04/21/20 05:03) Urine Culture (04/21/20 05:00) Medications Given in ED Current Medications Medications Dose Ordered Sig/Amalia Route Start Time Stop Time Status Last Admin Dose Admin Azithromycin 1,000 mg ONCE ONCE PO 04/21/20 05:15 04/21/20 05:16 DC 04/21/20 05:39 1,000 MG Ceftriaxone Sodium 250 mg ONCE ONCE IM 04/21/20 05:15 04/21/20 05:16 DC 04/21/20 05:39 250 MG Lidocaine HCl 0.9 ml ONCE ONCE INJ 04/21/20 05:15 04/21/20 05:16 DC 04/21/20 05:39 0.9 ML Vital Signs/I&O 04/21/20 04:50 Temp 35.0 Pulse 85 Resp 20 B/P (MAP) 134/87 (103) Pulse Ox 99 Capillary Refill : Less Than 3 Seconds Blood Pressure Mean: 103 Progress Note : Time: 05:38 Progress Note Nodules are not erythematous swollen or warm consistent with lymphogranuloma venereum however she does have some thin whitish greenish discharge so a wet prep, GC, chlamydia and syphilis antibody screen which were obtained. We treated her with Rocephin and azithromycin and will put her out on a week of doxycycline. We have encouraged her to follow-up with Dr. TATE who she has seen in the past for OB. She is agreed to do this for appropriate workup of her nodules in the pelvis. Departure Impression Primary Impression: Subcutaneous nodule of abdominal wall Additional Impressions: STI (sexually transmitted infection) Bacterial vaginitis Disposition: 01 HOME, SELF-CARE Condition: Stable Departure-Patient Inst. Decision time for Depature: 05:41 Referrals: ELLE TATE,LOCAL PHYSICIAN (PCP) Primary Care Physician Patient Instructions: Sexually-Transmitted Diseases, Bacterial Vaginosis Add. Discharge Instructions: The nodules could be related to infection, lipoma or other, potentially more serious problems. Dr. TATE can help you work this up. Thursday morning please call him for an appointment. pattern duplicator the doxycycline and take it twice a day for the next 10 days. pattern duplicator the Flagyl and take one capsule twice a day with food for the next week. pattern duplicator some probiotics and take one capsule twice a day until you complete the antibiotics. Return to the ER if you develop fever, vomiting or other worrisome symptoms. Tylenol or Motrin for discomfort. All discharge instructions reviewed with patient and/or family. Voiced understanding. Scripts Metronidazole (Flagyl) 500 Mg Tablet 500 MG PO BID for 7 Days, #14 TAB 0 Refills Prov: HARJINDER MONGE 04/21/20 Doxycycline Hyclate (Doxycycline Hyclate) 100 Mg Tablet 100 MG PO BID for 10 Days, #20 TAB 0 Refills Prov: HARJINDER MONGE 04/21/20 Copy Copies To 1: ELLE TATE TITUS J Apr 21, 2020 05:12
[2020-04-21] MEDS ORDERED: AZITHROMYCIN 250 MG TAB (ZITHROMAX) PO ONE (05:15)
[2020-04-21] MEDS ORDERED: LIDOCAINE 1% INJ 20 ML 20 ML VIAL INJ ONE (05:15)
[2020-04-21] MEDS ORDERED: cefTRIAXone 250 MG/ML vial (IM ONLY) IM ONE (05:15)
[2020-04-21 05:19] LABS: BILIRUBIN,URINE NEGATIVE (NEGATIVE); CLARITY,URINE SL CLOUDY; COLOR,URINE YELLOW; GLUCOSE, URINE (UA) NEGATIVE (NEGATIVE); KETONES,URINE TRACE (NEGATIVE); LEUKOCYTE ESTERASE ,URINE NEGATIVE (NEGATIVE); NITRITE,URINE NEGATIVE (NEGATIVE); PH,URINE 6.5 (5-9); PROTEIN,URINE NEGATIVE (NEGATIVE)
[2020-04-21 05:43] LABS: BACTERIA,URINE MODERATE /HPF; WBC,URINE 0-2 /HPF
[2020-04-21] MEDS ORDERED: DOXY100T2 PO (05:45)
[2020-04-21] MEDS ORDERED: METR500T PO (06:08)
== END 2020-04-21 06:15 | disposition home or self-care (01) ==
LOC: EDUNIT# 04:42 → ER 04:46
DX: R22.2 Localized swelling, mass and lump, trunk (principal); A64 Unspecified sexually transmitted disease; N76.0 Acute vaginitis; F17.210 Nicotine dependence, cigarettes, uncomplicated; Z88.0 Allergy status to penicillin; Z88.8 Allergy status to other drugs, medicaments and biological substances; Z83.3 Family history of diabetes mellitus; Z82.49 Family history of ischemic heart disease and other diseases of the circulatory system
CPT/HCPCS: 36415; 81000; 84703; 86780; 87088; 87210; 87491; 87591